=== PATIENT | female | born 1980 | race Caucasian/White ===

== ENCOUNTER 2017-08-14 10:53 | Inpatient (IN) | payer OTHER ==
[2017-08-14 11:02] VITALS: BMI 21.0
--- NOTE | 2017-08-14 14:32 | HP ---
COWS - Scale Resting Pulse: 0= [place] 80 or Below Sweatin= Chills/Flushing Restless Observation: 3= Extraneous Movement Pupil Size: 2= Moderately Dilated Bone or Joint Aches: 4=Acute Joint/Muscle Pain Runny Nose/ Eye Tearin= None GI Upset > 30mins: 2= Nausea/Diarrhea (DIARRHEA) Tremor Observation: 2= Slight Tremor Visible Yawning Observation: 0= None Anxiety or Irritability: 2=Irritable/Anxious Goose Flesh Skin: 3=Piloerection COWS Score: 19 CIWA Score - CIWA Score Nausea/Vomitin (DIARRHEA) Muscle Tremors: 3 Anxiety: 4-Mod. Anxious/Guarded Agitation: 4-Moderately Restless Paroxysmal Sweats: 1-Minimal Palms Moist Orientation: 0-Oriented Tacttile Disturbances: 0-None Auditory Disturbances: 0-None Visual Disturbances: 0-None Headache: 2-Mild CIWA-Ar Total Score: 17 Admission ROS [facility] - HPI Chief Complaint: HEROIN, ALCOHOL AND XANAX WITHDRAWAL SX Allergies/Adverse Reactions: Allergies Allergy/AdvReac Type Severity Reaction Status Date / Time cabbage Allergy Severe Hives Verified 08/14/17 11:46 penicillin G Allergy Unknown unknown Verified 08/14/17 11:46 peanut butter Allergy Severe Rash Uncoded 08/14/17 11:46 History of Present Illness: 37 Y/O FEMALE WITH A HX OF HEROIN, ALCOHOL AND XANAX DEPENDENCE SEEKING DETOX TX. THIS IS PT'S FIRST TIME IN DETOX. PT STATES SHE WAS ON SUBOXONE BUT STOPPED MORE THAN A WEEK AGO AND HAS BEEN USING HEROIN ON THE STREET SINCE THEN. Exam Limitations: No Limitations - Ebola screening Have you traveled outside of the country in the last 21 days: No Have you had contact with anyone from an Ebola affected area: No Have you been sick,other than usual withdrawal symptoms: No Do you have a fever: No - Review of Systems Constitutional: Chills, Night Sweats, Changes in sleep, Unintentional Wgt. Loss EENT: reports: Tearing, Dental Problems (MISSING TEETH) Respiratory: reports: No Symptoms reported Cardiac: reports: Lightheadedness GI: reports: Constipated, Diarrhea, Nausea, Poor Fluid Intake : reports: Frequency Musculoskeletal: reports: Joint Pain, Muscle Pain Integumentary: reports: No Symptoms Reported Neuro: reports: Headache, Seizure (LAST EPISODE 6 YRS AGO) Endocrine: reports: No Symptoms Reported Hematology: reports: No Symptoms Reported Psychiatric: reports: Orientated x3, Anxious Other Systems: Reviewed and Negative Patient History - Patient Medical History Hx Anemia: No Hx Asthma: No Hx Chronic Obstructive Pulmonary Disease (COPD): No Hx Cardiac Disorders: No Hx Hypertension: No Hx Hypercholesterolemia: No HX Cerebrovascular Accident: No Hx Seizures: Yes (drug related-last episode was in 2010) Hx Diabetes: No Hx Gastrointestinal Disorders: No Hx Genitourinary Disorders: No Hx Sexually Transmitted Disorders: No Hx Renal Disease (ESRD): No Hx Thyroid Disease: No Hx Human Immunodeficiency Virus (HIV): No (NEGATIVE HX) Hx Hepatitis C: No Hx Depression: No Hx Suicide Attempt: No (DENIES S/H/I) Hx Bipolar Disorder: No Hx Schizophrenia: No Other Medical History: HX INSOMNIA-REQUESTS F/U - Patient Surgical History Past Surgical History: Yes Hx Neurologic Surgery: No Hx Cataract Extraction: No Hx Cardiac Surgery: No Hx Lung Surgery: No Hx Breast Surgery: No Hx Breast Biopsy: No Hx Abdominal Surgery: No Hx Appendectomy: No Hx Cholecystectomy: No Hx Genitourinary Surgery: No Hx Section: No Hx Orthopedic Surgery: Yes (fx, left wrist) Hx Hysterectomy: No Anesthesia Reaction: No - PPD History Previous Implant?: Yes Documented Results: Negative w/o proof Implanted On Prior R Admission?: No PPD to be Administered?: Yes - Reproductive History Patient is a Female of Child Bearing Age (11 -55 yrs old): Yes Last Menstrual Period: 06/10/17 Patient : No - Smoking Cessation Smoking history: Never smoked Hx Chewing Tobacco Use: No Initiated information on smoking cessation: No - Substance & Tx. History Hx Alcohol Use: Yes (WINE/WHISKY) Hx Substance Use: Yes (HEROIN/XANAX/COCAINE) Substance Use Type: Alcohol, Cocaine, Heroin, Tranquilizers Hx Substance Use Treatment: No - Substances Abused Heroin Route: Inhalation Frequency: Daily Amount used: 10 bags Age of first use: 32 Date of Last Use: 08/12/17 Cocaine Route: Smoking Frequency: 1-3 times last 30 days Amount used: $20 Age of first use: 32 Date of Last Use: 08/12/17 Xanax Route: Oral Frequency: 3-6 times per week Amount used: 6-8 mg. Age of first use: 32 Date of Last Use: 08/12/17 Alcohol-wine/whisky Route: Oral Frequency: Daily Amount used: 1 pt. Age of first use: 32 Date of Last Use: 08/12/17 Family Disease History - Family Disease History Family Disease History: Other: Grandparent (MATERNAL SIDE-HTN ), Father (HTN), Mother (HTN) Admission Physical Exam [facility] - Vital Signs Vital Signs: Vital Signs - 24 hr 08/14/17 10:58 Temperature 98.9 F Pulse Rate 71 Respiratory 18 Rate Blood Pressure 138/94 - Physical General Appearance: Yes: Moderate Distress, Irritable, Anxious HEENTM: Yes: EOMI, Normocephalic, VANESA, Pharynx Normal Respiratory: Yes: Chest Non-Tender, Lungs Clear, Normal Breath Sounds, No Respiratory Distress Neck: Yes: No masses,lesions,Nodules, Supple, Trachea in good position Breast: Yes: Breast Exam Deferred Cardiology: Yes: Regular Rhythm, Regular Rate, S1, S2 Abdominal: Yes: Normal Bowel Sounds, Non Tender, Flat, Soft Genitourinary: Yes: Other (N/C) Back: Yes: Within Normal Limits Musculoskeletal: Yes: full range of Motion, Gait Steady Extremities: Yes: Normal Range of Motion, Non-Tender Neurological: Yes: child specialist II-XII NML intact, Fully Oriented, Alert, Motor Strength 5/5 Integumentary: Yes: Normal Color, Dry, Warm Lymphatic: Yes: Within Normal Limits - Diagnostic (1) Opioid dependence with withdrawal Current Visit: Yes Status: Acute (2) Alcohol dependence with uncomplicated withdrawal Current Visit: Yes Status: Acute (3) Sedative, hypnotic or anxiolytic dependence with withdrawal, uncomplicated Current Visit: Yes Status: Acute (4) History of insomnia Current Visit: Yes Status: Chronic (5) Cocaine dependence, uncomplicated Current Visit: Yes Status: Acute (6) Drug withdrawal seizure Current Visit: Yes Status: Suspected Qualifiers: Complication of substance-induced condition: uncomplicated Qualified Code(s ): F19.230 - Other psychoactive substance dependence with withdrawal, uncomplicated Cleared for Admission [facility] - Detox or Rehab [facility] Level of Care: Medically Managed Detox Regimen/Protocol: Methadone/Librium [facility] Breath Alcohol Content Breath Alcohol Content: 0 Urine Pregancy Test - Result Urine Test Results: Negative- NO Line Present Urine Drug Screen - Results Drug Screen Negative: No Urine Drug Screen Results: DEJAH-Cocaine, OPI-Opiates, BZO-Benzodiazepines
[2017-08-14] MEDS ORDERED: MAG HYDROX/AL HYDROX/SIMETH 30 ML UNIT-DOSE CUP PO PRN (14:54)
[2017-08-14] MEDS ORDERED: ACETAMINOPHEN 325 MG TABLET (FP) PO PRN (14:54)
[2017-08-14] MEDS ORDERED: MAGNESIUM CITRATE 300 ML BOTTLE PO PRN (14:54)
[2017-08-14] MEDS ORDERED: LOPERAMIDE HCL 2 MG CAPSULE PO PRN (14:54)
[2017-08-14] MEDS ORDERED: P-EPHED 60MG/TRIPROLIDI 2.5MG TABLET PO PRN (14:54)
[2017-08-14] MEDS ORDERED: MAGNESIUM HYDROX 2400MG/30ML ORAL SUSPENSION 30 ML CUP PO PRN (14:54)
[2017-08-14] MEDS ORDERED: guaiFENesin/D-METHORPHAN HB 10 ML UNIT-DOSE CUPS PO PRN (14:54)
[2017-08-14] MEDS ORDERED: IBUPROFEN 400 MG TABLET (FP) PO PRN (14:54)
[2017-08-14] MEDS ORDERED: MENTHOL/PHENOL 1 EACH UD MM PRN (14:54)
[2017-08-14] MEDS ORDERED: METHADONE HCL 10 MG TABLET (FOR DETOX USE ONLY) PO ONE ×2 (15:30→23:00)
[2017-08-14] MEDS ORDERED: chlordiazePOXIDE HCL 25 MG CAPSULE PO ONE (15:30)
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
[2017-08-14] MEDS: chlordiazePOXIDE HCL 25 MG CAPSULE PO PRN (18:05)
[2017-08-14] MEDS: chlordiazePOXIDE HCL 25 MG CAPSULE PO SCH ×2 (18:06→22:24)
[2017-08-14] MEDS: hydrOXYzine PAMOATE 25 MG CAPSULE (FP) PO PRN (19:24)
[2017-08-14] MEDS ORDERED: MELATONIN 5 MG TABLETS PO PRN (22:00)
[2017-08-14] MEDS: THIAMINE HCL 100 MG TABLET (FP) PO SCH (22:24)
[2017-08-14] MEDS: ZOLPIDEM TARTRATE 5 MG TABLET PO PRN (22:28)
[2017-08-14 22:40] LABS: URINE APPEARANCE TURBID; URINE BILIRUBIN NEGATIVE (<2.0 mg/dL); URINE COLOR YELLOW; URINE GLUCOSE (UA) NEGATIVE (NEGATIVE); URINE KETONE NEGATIVE (NEGATIVE); URINE NITRITE NEGATIVE (NEGATIVE); URINE UROBILINOGEN 4.0 E.U/dl mg/dL (0.2-1.0)
[2017-08-14 22:45] LABS: URINE LEUK ESTERASE 1+ (NEGATIVE); URINE PROTEIN 1+ (NEGATIVE)
[2017-08-14 22:50] LABS: EPI CELLS RARE /HPF (FEW); URINE MUCUS MANY
[2017-08-15] MEDS: chlordiazePOXIDE HCL 25 MG CAPSULE PO SCH ×4 (05:12→22:32)
[2017-08-15] MEDS: hydrOXYzine PAMOATE 25 MG CAPSULE (FP) PO PRN ×3 (05:16→19:48)
--- NOTE | 2017-08-15 09:24 | EKG ---
Test Reason : Blood Pressure : / mmHG Vent. Rate : 056 BPM Atrial Rate : 056 BPM P-R Int : 122 ms QRS Dur : 090 ms QT Int : 462 ms P-R-T Axes : 025 030 -18 degrees QTc Int : 445 ms SINUS BRADYCARDIA NONSPECIFIC T WAVE ABNORMALITY ABNORMAL ECG NO PREVIOUS ECGS AVAILABLE Confirmed by SHARYN MCKEON MD ([id number]) on 08/15/2017 9:23:34 AM Referred By: Confirmed By:SHARYN MCKEON MD
[2017-08-15 09:48] LABS: HEMOGLOBIN 12.7 GM/dL (10.7-15.3); MCH 30.2 pg (25.7-33.7); MCHC 34.3 g/dl (32.0-36.0); MEAN CELL VOLUME 88.2 fl (80-96); MEAN PLT VOLUME 12.1 fl (7.5-11.1); PLATELET COUNT 121 K/MM3 (134-434); RDW 12.8 % (11.6-15.6); WHITE BLOOD COUNT 5.7 K/mm3 (4.0-10.0)
[2017-08-15] MEDS ORDERED: METHADONE HCL 10 MG TABLET (FOR DETOX USE ONLY) PO SCH (10:00)
[2017-08-15] MEDS: PRENATAL VITAMINS W/ FOLIC ACID TABLET (FP) PO SCH (10:28)
[2017-08-15 10:40] LABS: CHLORIDE 107 mmol/L (98-107); POTASSIUM 3.4 mmol/L (3.5-5.1); SODIUM 144 mmol/L (136-145)
[2017-08-15 10:52] LABS: ALBUMIN 3.2 g/dl (3.4-5.0); ALK PHOS 64 U/L (45-117); ANION GAP 6 (8-16); BILIRUBIN,TOTAL 0.4 mg/dL (0.2-1.0); BLOOD UREA NITROGEN 12 mg/dL (7-18); CALCIUM 8.6 mg/dL (8.5-10.1); CO2 31 mmol/L (21-32); CREATININE 0.7 mg/dL (0.55-1.02); GLUCOSE,RANDOM 82 mg/dL (74-106); SGOT/AST 10 U/L (15-37); SGPT/ALT 16 U/L (12-78); TOT PROT 6.4 g/dl (6.4-8.2)
[2017-08-15] MEDS ORDERED: ONDANSETRON 4 MG/2 ML VIAL IM PRN (12:22)
[2017-08-15] MEDS ORDERED: ONDANSETRON *ODT* 4 MG TABLET SL PRN (13:49)
[2017-08-15] MEDS: chlordiazePOXIDE HCL 25 MG CAPSULE PO PRN (13:52)
--- NOTE | 2017-08-15 14:00 | PN ---
[facility] CIWA - CIWA Score Nausea/Vomitin Muscle Tremors: 3 Anxiety: 3 Agitation: 3 Paroxysmal Sweats: 3 Orientation: 0-Oriented Tacttile Disturbances: 0-None Auditory Disturbances: 0-None Visual Disturbances: 0-None Headache: 0-None Present CIWA-Ar Total Score: 15 S COWS - Scale Resting Pulse: 1= [place] 81-100 Sweatin=Flushed/Facial Moisture Restless Observation: 3= Extraneous Movement Pupil Size: 0= Normal to Room Light Bone or Joint Aches: 1= Mild Discomfort Runny Nose/ Eye Tearin= Nasal Congestion GI Upset > 30mins: 2= Nausea/Diarrhea Tremor Observation of Outstretched Hands: 2= Slight Tremor Visible Yawning Observation: 0= None Anxiety or Irritability: 4=Extreme Anxiety Goose Flesh Skin: 0=Smooth Skin COWS Score: 16 [facility] Progress Note (SOAP) Subjective: Sweats Anxious nausea Objective: 08/15/17 14:00 A & O x 3 Anxious Vital Signs Temperature 97.5 F L 08/15/17 10:09 Pulse Rate 63 08/15/17 10:09 Respiratory Rate 18 08/15/17 10:09 Blood Pressure 105/74 08/15/17 10:09 O2 Sat by Pulse Oximetry (%) Laboratory Last Values WBC 5.7 K/mm3 (4.0-10.0) 08/15/17 08:00 RBC 4.20 M/mm3 (3.60-5.2) 08/15/17 08:00 Hgb 12.7 GM/dL (10.7-15.3) 08/15/17 08:00 Hct 37.0 % (32.4-45.2) 08/15/17 08:00 MCV 88.2 fl (80-96) 08/15/17 08:00 MCH 30.2 pg (25.7-33.7) 08/15/17 08:00 MCHC 34.3 g/dl (32.0-36.0) 08/15/17 08:00 RDW 12.8 % (11.6-15.6) 08/15/17 08:00 Plt Count 121 K/MM3 (134-434) L 08/15/17 08:00 MPV 12.1 fl (7.5-11.1) H 08/15/17 08:00 Sodium 144 mmol/L (136-145) 08/15/17 08:00 Potassium 3.4 mmol/L (3.5-5.1) L 08/15/17 08:00 Chloride 107 mmol/L (98-107) 08/15/17 08:00 Carbon Dioxide 31 mmol/L (21-32) 08/15/17 08:00 Anion Gap 6 (8-16) L 08/15/17 08:00 BUN 12 mg/dL (7-18) 08/15/17 08:00 Creatinine 0.7 mg/dL (0.55-1.02) 08/15/17 08:00 Creat Clearance w eGFR > 60 (>60) 08/15/17 08:00 Random Glucose 82 mg/dL (74-106) 08/15/17 08:00 Calcium 8.6 mg/dL (8.5-10.1) 08/15/17 08:00 Total Bilirubin 0.4 mg/dL (0.2-1.0) 08/15/17 08:00 AST 10 U/L (15-37) L 08/15/17 08:00 ALT 16 U/L (12-78) 08/15/17 08:00 Alkaline Phosphatase 64 U/L (45-117) 08/15/17 08:00 Total Protein 6.4 g/dl (6.4-8.2) 08/15/17 08:00 Albumin 3.2 g/dl (3.4-5.0) L 08/15/17 08:00 Urine Color Yellow 08/14/17:34 Urine Appearance Turbid 08/14/17 15:34 Urine pH 5.0 (5.0-8.0) 08/14/17 15:34 Ur Specific [place] 1.033 (1.001-1.035) 08/14/17 15:34 Urine Protein 1+ (NEGATIVE) H 08/14/17 15:34 Urine Glucose (UA) Negative (NEGATIVE) 08/14/17 15:34 Urine Ketones Negative (NEGATIVE) 08/14/17 15:34 Urine Blood Negative (NEGATIVE) 08/14/17 15:34 Urine Nitrite Negative (NEGATIVE) 08/14/17:34 Urine Bilirubin Negative (<2.0 mg/dL) 08/14/17 15:34 Urine Urobilinogen 4.0 e.u/dl mg/dL (0.2-1.0) H 08/14/17 15:34 Ur Leukocyte Esterase 1+ (NEGATIVE) H 08/14/17 15:34 Urine WBC (Auto) 22 /hpf (3-5) 08/14/17 15:34 Urine RBC (Auto) 2 /hpf (0-3) 08/14/17 15:34 Ur Epithelial Cells Rare /HPF (FEW) 08/14/17 15:34 Urine Mucus Many 08/14/17 15:34 labs noted, abnormal urinalysis - denies UTI sx 08/15/17 14:02 Assessment: 08/15/17 14:01 withdrawal sx Abnormal Urinalysis Plan: continue detox Increase hydration Repeat UA in a.m
[2017-08-15 19:30] LABS: URINE APPEARANCE SLCLOUDY; URINE BILIRUBIN NEGATIVE (<2.0 mg/dL); URINE COLOR YELLOW; URINE GLUCOSE (UA) NEGATIVE (NEGATIVE); URINE KETONE NEGATIVE (NEGATIVE); URINE LEUK ESTERASE TRACE (NEGATIVE); URINE NITRITE NEGATIVE (NEGATIVE); URINE PROTEIN NEGATIVE (NEGATIVE)
[2017-08-15 19:38] LABS: EPI CELLS MODERATE /HPF (FEW); URINE BACTERIA FEW /hpf (NONE SEEN); URINE MUCUS RARE
[2017-08-15] MEDS: THIAMINE HCL 100 MG TABLET (FP) PO SCH (22:32)
[2017-08-15] MEDS: ZOLPIDEM TARTRATE 5 MG TABLET PO PRN (22:33)
[2017-08-16] MEDS: chlordiazePOXIDE HCL 25 MG CAPSULE PO SCH ×2 (05:19→10:37)
[2017-08-16] MEDS: hydrOXYzine PAMOATE 25 MG CAPSULE (FP) PO PRN ×3 (05:20→22:12)
[2017-08-16] MEDS: METHADONE HCL 5 MG TABLET (FOR DETOX USE ONLY) PO SCH (10:37)
[2017-08-16] MEDS: PRENATAL VITAMINS W/ FOLIC ACID TABLET (FP) PO SCH (10:37)
--- NOTE | 2017-08-16 11:27 | PN ---
[facility] CIWA - CIWA Score Nausea/Vomitin-Mild Nausea/No Vomiting Muscle Tremors: 4-Moderate,w/Arms Extend Anxiety: 3 Agitation: 3 Paroxysmal Sweats: 1-Minimal Palms Moist Orientation: 1-Uncertain about Date Tacttile Disturbances: 1-Very Mild Itch/Numbness Auditory Disturbances: 0-None Visual Disturbances: 0-None Headache: 0-None Present CIWA-Ar Total Score: 14 S COWS - Scale Resting Pulse: 0= [place] 80 or Below Sweatin= Chills/Flushing Restless Observation: 3= Extraneous Movement Pupil Size: 0= Normal to Room Light Bone or Joint Aches: 2= Severe Diffuse Aches Runny Nose/ Eye Tearin= Nasal Congestion GI Upset > 30mins: 2= Nausea/Diarrhea Tremor Observation of Outstretched Hands: 1= Tremor [place], Not Seen Yawning Observation: 2= >3x During Session Anxiety or Irritability: 2=Irritable/Anxious Goose Flesh Skin: 0=Smooth Skin COWS Score: 14 [facility] Progress Note (SOAP) Subjective: JOINT PAIN BODY ACHE SWEAT TREMOR TROUBLE SLEEP AT NIGHT Objective: 08/16/17 11:20 Vital Signs Temperature 97.2 F L 08/16/17 09:36 Pulse Rate 75 08/16/17 09:36 Respiratory Rate 18 08/16/17 09:36 Blood Pressure 111/69 08/16/17 09:36 O2 Sat by Pulse Oximetry (%) Laboratory Last Values WBC 5.7 K/mm3 (4.0-10.0) 08/15/17 08:00 RBC 4.20 M/mm3 (3.60-5.2) 08/15/17 08:00 Hgb 12.7 GM/dL (10.7-15.3) 08/15/17 08:00 Hct 37.0 % (32.4-45.2) 08/15/17 08:00 MCV 88.2 fl (80-96) 08/15/17 08:00 MCH 30.2 pg (25.7-33.7) 08/15/17 08:00 MCHC 34.3 g/dl (32.0-36.0) 08/15/17 08:00 RDW 12.8 % (11.6-15.6) 08/15/17 08:00 Plt Count 121 K/MM3 (134-434) L 08/15/17 08:00 MPV 12.1 fl (7.5-11.1) H 08/15/17 08:00 Sodium 144 mmol/L (136-145) 08/15/17 08:00 Potassium 3.4 mmol/L (3.5-5.1) L 08/15/17 08:00 Chloride 107 mmol/L (98-107) 08/15/17 08:00 Carbon Dioxide 31 mmol/L (21-32) 08/15/17 08:00 Anion Gap 6 (8-16) L 08/15/17 08:00 BUN 12 mg/dL (7-18) 08/15/17 08:00 Creatinine 0.7 mg/dL (0.55-1.02) 08/15/17 08:00 Creat Clearance w eGFR > 60 (>60) 08/15/17 08:00 Random Glucose 82 mg/dL (74-106) 08/15/17 08:00 Calcium 8.6 mg/dL (8.5-10.1) 08/15/17 08:00 Total Bilirubin 0.4 mg/dL (0.2-1.0) 08/15/17 08:00 AST 10 U/L (15-37) L 08/15/17 08:00 ALT 16 U/L (12-78) 08/15/17 08:00 Alkaline Phosphatase 64 U/L (45-117) 08/15/17 08:00 Total Protein 6.4 g/dl (6.4-8.2) 08/15/17 08:00 Albumin 3.2 g/dl (3.4-5.0) L 08/15/17 08:00 Urine Color Yellow 08/15/17 15:49 Urine Appearance Slcloudy 08/15/17 15:49 Urine pH 6.0 (5.0-8.0) 08/15/17 15:49 Ur Specific [place] 1.015 (1.001-1.035) 08/15/17 15:49 Urine Protein Negative (NEGATIVE) 08/15/17 15:49 Urine Glucose (UA) Negative (NEGATIVE) 08/15/17 15:49 Urine Ketones Negative (NEGATIVE) 08/15/17 15:49 Urine Blood Negative (NEGATIVE) 08/15/17 15:49 Urine Nitrite Negative (NEGATIVE) 08/15/17 15:49 Urine Bilirubin Negative (<2.0 mg/dL) 08/15/17 15:49 Urine Urobilinogen 2.0 mg/dL (0.2-1.0) H 08/15/17 15:49 Ur Leukocyte Esterase Trace (NEGATIVE) 08/15/17 15:49 Urine WBC (Auto) 13 /hpf (3-5) 08/15/17 15:49 Urine RBC (Auto) 3 /hpf (0-3) 08/15/17 15:49 Ur Epithelial Cells Moderate /HPF (FEW) 08/15/17 15:49 Urine Bacteria Few /hpf (NONE SEEN) 08/15/17 15:49 Urine Mucus Rare 08/15/17 15:49 RPR Titer Nonreactive (NONREACTIVE) 08/15/17 08:00 LAB NOTED LOW k+ 08/16/17 11:27 REPEAT UA Assessment: 08/16/17 11:23 WITHDRAWAL SX LOW k+ Plan: CONTINUE DETOX k+ SUPPLEMENT
[2017-08-16] MEDS ORDERED: POTASSIUM CHLORIDE TABS 10 MEQ TABLET.ER (FP) PO SCH (11:30)
[2017-08-16] MEDS ORDERED: POTASSIUM CHLORIDE TABS 20 MEQ TABLET.ER (FP) PO SCH (12:09)
[2017-08-16] MEDS: POTASSIUM CHLORIDE TABS 20 MEQ TABLET.ER (FP) PO SCH (12:28)
[2017-08-16] MEDS: chlordiazePOXIDE HCL 25 MG CAPSULE PO PRN (14:22)
[2017-08-16] MEDS: chlordiazePOXIDE 5 MG CAPSULE PO SCH ×2 (17:20→22:11)
[2017-08-16] MEDS: THIAMINE HCL 100 MG TABLET (FP) PO SCH (22:11)
[2017-08-16] MEDS: ZOLPIDEM TARTRATE 5 MG TABLET PO PRN (22:12)
[2017-08-17] MEDS: chlordiazePOXIDE 5 MG CAPSULE PO SCH ×2 (05:15→10:44)
[2017-08-17] MEDS: hydrOXYzine PAMOATE 25 MG CAPSULE (FP) PO PRN ×3 (07:29→18:12)
--- NOTE | 2017-08-17 08:16 | PN ---
Psychiatric Progress Note Vital Signs: Vital Signs Period Temp Pulse Resp BP Sys/Pressley Pulse Ox Last 24 Hr 97.2 F-98.2 F 67-75 18-18 111-159/56-88 Date of Session: 08/17/17 Chief Complaint:: Anxiety, agitation, insomnia HPI: Patient reports anxiety and insomnia, asking for medications help. Current Medications: Active Medications Generic Name Dose Route Start Last Admin Trade Name Freq PRN Reason Stop Dose Admin Acetaminophen 650 mg 08/14/17 14:54 Tylenol - PO Q4H PRN FEVER Al Hydroxide/Mg Hydroxide 30 ml 08/14/17 14:54 Mylanta Oral Suspension - PO Q6H PRN DYSPEPSIA Chlordiazepoxide HCl 15 mg 08/16/17 17:00 08/17/17 05:15 Librium - PO 08/17/17 11:01 15 mg [id number] DEANGELO Administration Chlordiazepoxide HCl 10 mg 08/17/17 17:00 Librium - PO 08/18/17 11:01 [id number] DEANGELO Chlordiazepoxide HCl 25 mg 08/14/17 14:54 08/16/17 14:22 Librium - PO 08/17/17 14:54 25 mg Q4H PRN Administration WITHDRAWAL(CONT SUBST) Eucalyptus/Menthol/Phenol/Sorbitol 1 each 08/14/17 14:54 Cepastat Lozenge - MM Q4H PRN SORE THROAT Guaifenesin 10 ml 08/14/17 14:54 Robitussin Dm - PO Q6H PRN COUGH Hydroxyzine Pamoate 50 mg 08/17/17 07:47 Vistaril - PO Q4H PRN ANXIETY Ibuprofen 400 mg 08/14/17 14:54 Motrin - PO Q6H PRN PAIN LEVEL 4-6 Loperamide HCl 4 mg 08/14/17 14:54 Imodium - PO Q6H PRN DIARRHEA Magnesium Citrate 300 ml 08/14/17 14:54 Citroma - PO Q48H PRN CONSTIPATION Magnesium Hydroxide 30 ml 08/14/17 14:54 Milk Of Magnesia - PO DAILY PRN CONSTIPATION Methadone HCl 15 mg 08/16/17 10:00 08/16/17 10:37 Dolophine - PO 08/17/17 10:01 15 mg DAILY DEANGELO Administration Methadone HCl 5 mg 08/19/17 06:00 Dolophine - PO 08/19/17 06:01 DAILY@0600 DEANGELO Methadone HCl 10 mg 08/18/17 10:00 Dolophine - PO 08/18/17 10:01 DAILY DEANGELO Ondansetron HCl 4 mg 08/15/17 13:49 Zofran Odt - SL Q6H PRN NAUSEA AND/OR VOMITING Potassium Chloride 20 meq 08/16/17 12:30 08/16/17 12:28 K-Dur - PO 20 meq DAILY DEANGELO Administration Multivit/Folic Acid/Iron 1 tab 08/15/17 10:00 08/16/17 10:37 Vitamins (Sjr) - PO 1 tab DAILY DEANGELO Administration Pseudoephedrine/Triprolidine 1 combo 08/14/17 14:54 Actifed - PO TID PRN NASAL CONGESTION Quetiapine Fumarate 50 mg 08/17/17 14:00 Seroquel - PO TID DEANGELO Thiamine HCl 100 mg 08/14/17 22:00 08/16/17 22:11 Vitamin B1 - PO 100 mg HS DEANGELO Administration Zolpidem Tartrate 10 mg 08/16/17 13:46 08/16/17 22:12 Ambien - PO 08/21/17 23:59 10 mg HS PRN Administration INSOMNIA Medication(s) Change(s): [id number] po prn q4. Seroquel 50mg po tid Mental Status Exam - Mental Status Exam Alert and Oriented to: Place, Person Cognitive Function: Fair Patient Appearance: Unkempt Mood: Anxious Affect: Mood Congruent Patient Behavior: Talkative Speech Pattern: Appropriate Voice Loudness: Normal Thought Process: Goal Oriented Thought Disorder: Being Controlled Hallucinations: Denies Suicidal Ideation: Denies Homicidal Ideation: Denies Insight/Judgement: Fair Sleep: Difficulty falling asleep Appetite: Weight loss Muscle strength/Tone: Mild Hypotonicity Gait/Station: Normal Additional Comments: Trazodone 100mg po qhs. Flexeril 10mg pop tid. Vistaril 100mg p[o tid Psychiatric Treatment Plan - Problem List (1) Drug-induced mood disorder Current Visit: Yes (2) Alcohol dependence with uncomplicated withdrawal Current Visit: Yes (3) Cocaine dependence, uncomplicated Current Visit: Yes (4) Opioid dependence with withdrawal Current Visit: Yes (5) Sedative, hypnotic or anxiolytic dependence with withdrawal, uncomplicated Current Visit: Yes (6) Substance-induced sleep disorder Current Visit: Yes (7) History of insomnia Current Visit: Yes Initial treatment plan: Trazodone 100mg po qhs. Flexeril 10mg pop tid. Vistaril 100mg p[o tid
[2017-08-17] MEDS: PRENATAL VITAMINS W/ FOLIC ACID TABLET (FP) PO SCH (10:43)
[2017-08-17] MEDS: POTASSIUM CHLORIDE TABS 20 MEQ TABLET.ER (FP) PO SCH (10:43)
[2017-08-17] MEDS: METHADONE HCL 5 MG TABLET (FOR DETOX USE ONLY) PO SCH (10:44)
[2017-08-17] MEDS: chlordiazePOXIDE HCL 25 MG CAPSULE PO PRN (11:52)
[2017-08-17] MEDS: QUEtiapine FUMARATE 50 MG TABLET PO SCH ×2 (14:00→22:06)
--- NOTE | 2017-08-17 14:21 | PN ---
[facility] Progress Note (SOAP) Subjective: joint pain sweat tremor body ache anxiety restlessness irritable Objective: 08/17/17 14:21 Vital Signs Temperature 98.2 F 08/17/17 13:50 Pulse Rate 74 08/17/17 13:50 Respiratory Rate 18 08/17/17 13:50 Blood Pressure 143/85 08/17/17 13:50 O2 Sat by Pulse Oximetry (%) Laboratory Last Values WBC 5.7 K/mm3 (4.0-10.0) 08/15/17 08:00 RBC 4.20 M/mm3 (3.60-5.2) 08/15/17 08:00 Hgb 12.7 GM/dL (10.7-15.3) 08/15/17 08:00 Hct 37.0 % (32.4-45.2) 08/15/17 08:00 MCV 88.2 fl (80-96) 08/15/17 08:00 MCH 30.2 pg (25.7-33.7) 08/15/17 08:00 MCHC 34.3 g/dl (32.0-36.0) 08/15/17 08:00 RDW 12.8 % (11.6-15.6) 08/15/17 08:00 Plt Count 121 K/MM3 (134-434) L 08/15/17 08:00 MPV 12.1 fl (7.5-11.1) H 08/15/17 08:00 Sodium 144 mmol/L (136-145) 08/15/17 08:00 Potassium 3.4 mmol/L (3.5-5.1) L 08/15/17 08:00 Chloride 107 mmol/L (98-107) 08/15/17 08:00 Carbon Dioxide 31 mmol/L (21-32) 08/15/17 08:00 Anion Gap 6 (8-16) L 08/15/17 08:00 BUN 12 mg/dL (7-18) 08/15/17 08:00 Creatinine 0.7 mg/dL (0.55-1.02) 08/15/17 08:00 Creat Clearance w eGFR > 60 (>60) 08/15/17 08:00 Random Glucose 82 mg/dL (74-106) 08/15/17 08:00 Calcium 8.6 mg/dL (8.5-10.1) 08/15/17 08:00 Total Bilirubin 0.4 mg/dL (0.2-1.0) 08/15/17 08:00 AST 10 U/L (15-37) L 08/15/17 08:00 ALT 16 U/L (12-78) 08/15/17 08:00 Alkaline Phosphatase 64 U/L (45-117) 08/15/17 08:00 Total Protein 6.4 g/dl (6.4-8.2) 08/15/17 08:00 Albumin 3.2 g/dl (3.4-5.0) L 08/15/17 08:00 Urine Color Yellow 08/15/17 15:49 Urine Appearance Slcloudy 08/15/17 15:49 Urine pH 6.0 (5.0-8.0) 08/15/17 15:49 Ur Specific [place] 1.015 (1.001-1.035) 08/15/17 15:49 Urine Protein Negative (NEGATIVE) 08/15/17 15:49 Urine Glucose (UA) Negative (NEGATIVE) 08/15/17 15:49 Urine Ketones Negative (NEGATIVE) 08/15/17 15:49 Urine Blood Negative (NEGATIVE) 08/15/17 15:49 Urine Nitrite Negative (NEGATIVE) 08/15/17 15:49 Urine Bilirubin Negative (<2.0 mg/dL) 08/15/17 15:49 Urine Urobilinogen 2.0 mg/dL (0.2-1.0) H 08/15/17 15:49 Ur Leukocyte Esterase Trace (NEGATIVE) 08/15/17 15:49 Urine WBC (Auto) 13 /hpf (3-5) 08/15/17 15:49 Urine RBC (Auto) 3 /hpf (0-3) 08/15/17 15:49 Ur Epithelial Cells Moderate /HPF (FEW) 08/15/17 15:49 Urine Bacteria Few /hpf (NONE SEEN) 08/15/17 15:49 Urine Mucus Rare 08/15/17 15:49 RPR Titer Nonreactive (NONREACTIVE) 08/15/17 08:00 lab noted Assessment: 08/17/17 14:26 withdrawal sx Plan: continue detox
[2017-08-17] MEDS: chlordiazePOXIDE HCL 10 MG CAPSULE PO SCH ×2 (18:12→22:06)
[2017-08-17] MEDS: ZOLPIDEM TARTRATE 5 MG TABLET PO PRN (22:06)
[2017-08-17] MEDS: THIAMINE HCL 100 MG TABLET (FP) PO SCH (22:06)
[2017-08-18] MEDS: QUEtiapine FUMARATE 50 MG TABLET PO SCH ×3 (06:21→22:05)
[2017-08-18] MEDS: chlordiazePOXIDE HCL 10 MG CAPSULE PO SCH ×2 (06:21→10:04)
[2017-08-18] MEDS ORDERED: METHADONE HCL 10 MG TABLET (FOR DETOX USE ONLY) PO SCH (10:00)
[2017-08-18] MEDS: POTASSIUM CHLORIDE TABS 20 MEQ TABLET.ER (FP) PO SCH (10:04)
[2017-08-18] MEDS: PRENATAL VITAMINS W/ FOLIC ACID TABLET (FP) PO SCH (10:04)
--- NOTE | 2017-08-18 10:25 | PN ---
[facility] Progress Note (SOAP) Subjective: feeling better social with peers in day room no tremor less sweat no body aches Objective: 08/18/17 10:24 Vital Signs Temperature 97.5 F L 08/18/17 09:06 Pulse Rate 80 08/18/17 09:06 Respiratory Rate 18 08/18/17 09:06 Blood Pressure 141/86 08/18/17 09:06 O2 Sat by Pulse Oximetry (%) Laboratory Last Values WBC 5.7 K/mm3 (4.0-10.0) 08/15/17 08:00 RBC 4.20 M/mm3 (3.60-5.2) 08/15/17 08:00 Hgb 12.7 GM/dL (10.7-15.3) 08/15/17 08:00 Hct 37.0 % (32.4-45.2) 08/15/17 08:00 MCV 88.2 fl (80-96) 08/15/17 08:00 MCH 30.2 pg (25.7-33.7) 08/15/17 08:00 MCHC 34.3 g/dl (32.0-36.0) 08/15/17 08:00 RDW 12.8 % (11.6-15.6) 08/15/17 08:00 Plt Count 121 K/MM3 (134-434) L 08/15/17 08:00 MPV 12.1 fl (7.5-11.1) H 08/15/17 08:00 Sodium 144 mmol/L (136-145) 08/15/17 08:00 Potassium 3.9 mmol/L (3.5-5.1) 08/18/17 07:00 Chloride 107 mmol/L (98-107) 08/15/17 08:00 Carbon Dioxide 31 mmol/L (21-32) 08/15/17 08:00 Anion Gap 6 (8-16) L 08/15/17 08:00 BUN 12 mg/dL (7-18) 08/15/17 08:00 Creatinine 0.7 mg/dL (0.55-1.02) 08/15/17 08:00 Creat Clearance w eGFR > 60 (>60) 08/15/17 08:00 Random Glucose 82 mg/dL (74-106) 08/15/17 08:00 Calcium 8.6 mg/dL (8.5-10.1) 08/15/17 08:00 Total Bilirubin 0.4 mg/dL (0.2-1.0) 08/15/17 08:00 AST 10 U/L (15-37) L 08/15/17 08:00 ALT 16 U/L (12-78) 08/15/17 08:00 Alkaline Phosphatase 64 U/L (45-117) 08/15/17 08:00 Total Protein 6.4 g/dl (6.4-8.2) 08/15/17 08:00 Albumin 3.2 g/dl (3.4-5.0) L 08/15/17 08:00 Urine Color Yellow 08/15/17 15:49 Urine Appearance Slcloudy 08/15/17 15:49 Urine pH 6.0 (5.0-8.0) 08/15/17 15:49 Ur Specific [place] 1.015 (1.001-1.035) 08/15/17 15:49 Urine Protein Negative (NEGATIVE) 08/15/17 15:49 Urine Glucose (UA) Negative (NEGATIVE) 08/15/17 15:49 Urine Ketones Negative (NEGATIVE) 08/15/17 15:49 Urine Blood Negative (NEGATIVE) 08/15/17 15:49 Urine Nitrite Negative (NEGATIVE) 08/15/17 15:49 Urine Bilirubin Negative (<2.0 mg/dL) 08/15/17 15:49 Urine Urobilinogen 2.0 mg/dL (0.2-1.0) H 08/15/17 15:49 Ur Leukocyte Esterase Trace (NEGATIVE) 08/15/17 15:49 Urine WBC (Auto) 13 /hpf (3-5) 08/15/17 15:49 Urine RBC (Auto) 3 /hpf (0-3) 08/15/17 15:49 Ur Epithelial Cells Moderate /HPF (FEW) 08/15/17 15:49 Urine Bacteria Few /hpf (NONE SEEN) 08/15/17 15:49 Urine Mucus Rare 08/15/17 15:49 RPR Titer Nonreactive (NONREACTIVE) 08/15/17 08:00 lab noted Assessment: 08/18/17 10:25 mild withdrawal sx Plan: medically supervised detox
[2017-08-18] MEDS: hydrOXYzine PAMOATE 25 MG CAPSULE (FP) PO PRN ×2 (11:32→16:23)
[2017-08-18] MEDS: THIAMINE HCL 100 MG TABLET (FP) PO SCH (22:05)
[2017-08-18] MEDS: ZOLPIDEM TARTRATE 5 MG TABLET PO PRN (22:06)
[2017-08-19] MEDS: QUEtiapine FUMARATE 50 MG TABLET PO SCH (05:09)
[2017-08-19] MEDS ORDERED: METHADONE HCL 5 MG TABLET (FOR DETOX USE ONLY) PO SCH (06:00)
--- NOTE | 2017-08-19 08:57 | PN ---
[facility] Progress Note (SOAP) Subjective: Improved Objective: 08/19/17 08:55 Vital Signs Temperature 97.7 F 08/19/17 06:00 Pulse Rate 76 08/19/17 06:00 Respiratory Rate 16 08/19/17 06:00 Blood Pressure 140/91 08/19/17 06:00 O2 Sat by Pulse Oximetry (%) Laboratory Tests 08/14/17 08/15/17 08/15/17 15:34 08:00 08:00 WBC 5.7 RBC 4.20 Hgb 12.7 Hct 37.0 MCV 88.2 MCH 30.2 MCHC 34.3 RDW 12.8 Plt Count 121 L MPV 12.1 H Sodium 144 Potassium 3.4 L Chloride 107 Carbon Dioxide 31 Anion Gap 6 L BUN 12 Creatinine 0.7 Creat Clearance w eGFR > 60 Random Glucose 82 Calcium 8.6 Total Bilirubin 0.4 AST 10 L ALT 16 Alkaline Phosphatase 64 Total Protein 6.4 Albumin 3.2 L Urine Color Yellow Urine Appearance Turbid Urine pH 5.0 Ur Specific [place] 1.033 Urine Protein 1+ H Urine Glucose (UA) Negative Urine Ketones Negative Urine Blood Negative Urine Nitrite Negative Urine Bilirubin Negative Urine Urobilinogen 4.0 e.u/dl H Ur Leukocyte Esterase 1+ H Urine WBC (Auto) 22 Urine RBC (Auto) 2 Ur Epithelial Cells Rare Urine Bacteria Urine Mucus Many RPR Titer 08/15/17 08/15/17 08/18/17 08:00 15:49 07:00 WBC RBC Hgb Hct MCV MCH MCHC RDW Plt Count MPV Sodium Potassium 3.9 Chloride Carbon Dioxide Anion Gap BUN Creatinine Creat Clearance w eGFR Random Glucose Calcium Total Bilirubin AST ALT Alkaline Phosphatase Total Protein Albumin Urine Color Yellow Urine Appearance Slcloudy Urine pH 6.0 Ur Specific [place] 1.015 Urine Protein Negative Urine Glucose (UA) Negative Urine Ketones Negative Urine Blood Negative Urine Nitrite Negative Urine Bilirubin Negative Urine Urobilinogen 2.0 H Ur Leukocyte Esterase Trace Urine WBC (Auto) 13 Urine RBC (Auto) 3 Ur Epithelial Cells Moderate Urine Bacteria Few Urine Mucus Rare RPR Titer Nonreactive pt aox3 in nad ambulating Assessment: 08/19/17 08:56 withdrawal sx's improved detox completed Plan: d/c today
--- NOTE | 2017-08-19 09:00 | DS ---
[facility] Detox Discharge Summary Admission Date: 08/14/17 Discharge Date: 08/19/17 - History Present History: Alcohol Dependence, Cocaine Dependence, Opioid Dependence - Physical Exam Results Vital Signs: Vital Signs Temperature 97.7 F 08/19/17 06:00 Pulse Rate 76 08/19/17 06:00 Respiratory Rate 16 08/19/17 06:00 Blood Pressure 140/91 08/19/17 06:00 O2 Sat by Pulse Oximetry (%) - Treatment Hospital Course: Detox Protocol Followed, Detoxed Safely, Responded well, Discharged Condition Good - Medication Discharge Medications: Ambulatory Orders Buprenorphine HCl/Naloxone HCl [Zubsolv 5.7-1.4 mg Tablet Sl] 1 each SL BID Quetiapine Fumarate [Quetiapine Fumarate ER] 50 mg PO TID #90 tab.er.24h hydrOXYzine PAMOATE [Vistaril -] 50 mg PO Q4H PRN #90 capsule 08/17/17 - Diagnosis (1) Abnormal finding on urinalysis Current Visit: Yes Status: Acute (2) Alcohol dependence with uncomplicated withdrawal Current Visit: Yes Status: Acute (3) Cocaine dependence, uncomplicated Current Visit: Yes Status: Acute (4) Opioid dependence with withdrawal Current Visit: Yes Status: Chronic (5) Sedative, hypnotic or anxiolytic dependence with withdrawal, uncomplicated Current Visit: Yes Status: Chronic - AMA Did Patient Leave Against Medical Advice: No
[2017-08-19 09:13] VITALS: BP 106/59; PULSE 108; TEMP 98.4
[2017-08-19] MEDS: POTASSIUM CHLORIDE TABS 20 MEQ TABLET.ER (FP) PO SCH (09:19)
[2017-08-19] MEDS: PRENATAL VITAMINS W/ FOLIC ACID TABLET (FP) PO SCH (09:19)
[2017-08-19] MEDS: hydrOXYzine PAMOATE 25 MG CAPSULE (FP) PO PRN (09:19)
== END 2017-08-19 11:26 | disposition home or self-care (01) | DRG 773 ==
LOC: EDBD → YASAS 10:53 → Y6N 15:25
PROVIDERS: ADMIT Family Medicine Addiction Medicine; ATTEND Family Medicine Addiction Medicine
PROC: HZ2ZZZZ Detoxification Services for Substance Abuse Treatment (ICD-10-PCS; principal; 2017-08-14)
DX: F11.23 Opioid dependence with withdrawal (principal); F13.230 Sedative, hypnotic or anxiolytic dependence with withdrawal, uncomplicated; F10.230 Alcohol dependence with withdrawal, uncomplicated; F14.20 Cocaine dependence, uncomplicated; F19.24 Other psychoactive substance dependence with psychoactive substance-induced mood disorder; F19.282 Other psychoactive substance dependence with psychoactive substance-induced sleep disorder; G47.00 Insomnia, unspecified; R82.90 Unspecified abnormal findings in urine; Z86.69 Personal history of other diseases of the nervous system and sense organs; Z88.0 Allergy status to penicillin; Z91.018 Allergy to other foods
CPT/HCPCS: 36415; 80053; 81003; 81015; 84132; 85027; 86593; 93005; 93010

== ENCOUNTER 2018-01-09 16:12 | Inpatient (IN) | payer OTHER ==
[2018-01-09 16:38] VITALS: BMI 25.3
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
[2018-01-09] MEDS ORDERED: MENTHOL/PHENOL 1 EACH UD MM PRN (17:47)
[2018-01-09] MEDS ORDERED: guaiFENesin/D-METHORPHAN HB 10 ML UNIT-DOSE CUPS PO PRN (17:47)
[2018-01-09] MEDS ORDERED: MAGNESIUM HYDROX 2400MG/30ML ORAL SUSPENSION 30 ML CUP PO PRN (17:47)
[2018-01-09] MEDS ORDERED: LOPERAMIDE HCL 2 MG CAPSULE PO PRN (17:47)
[2018-01-09] MEDS ORDERED: ACETAMINOPHEN 325 MG TABLET (FP) PO PRN (17:47)
[2018-01-09] MEDS ORDERED: IBUPROFEN 400 MG TABLET (FP) PO PRN (17:47)
[2018-01-09] MEDS ORDERED: P-EPHED 60MG/TRIPROLIDI 2.5MG TABLET PO PRN (17:47)
[2018-01-09] MEDS ORDERED: hydrOXYzine PAMOATE 25 MG CAPSULE (FP) PO PRN (17:47)
[2018-01-09] MEDS ORDERED: MAGNESIUM CITRATE 300 ML BOTTLE PO PRN (17:47)
[2018-01-09] MEDS ORDERED: MAG HYDROX/AL HYDROX/SIMETH 30 ML UNIT-DOSE CUP PO PRN (17:47)
[2018-01-09] MEDS ORDERED: chlordiazePOXIDE HCL 25 MG CAPSULE PO PRN (17:47)
[2018-01-09] MEDS: THIAMINE HCL 100 MG TABLET (FP) PO SCH (21:47)
[2018-01-09] MEDS ORDERED: MELATONIN 5 MG TABLETS PO PRN (22:00)
[2018-01-09] MEDS: chlordiazePOXIDE HCL 25 MG CAPSULE PO SCH (22:48)
[2018-01-10 01:48] LABS: URINE APPEARANCE CLEAR; URINE BILIRUBIN NEGATIVE (<2.0 mg/dL); URINE COLOR LTYELLOW; URINE GLUCOSE (UA) NEGATIVE (NEGATIVE); URINE KETONE NEGATIVE (NEGATIVE); URINE LEUK ESTERASE TRACE (NEGATIVE); URINE NITRITE NEGATIVE (NEGATIVE); URINE PROTEIN NEGATIVE (NEGATIVE); URINE UROBILINOGEN NEGATIVE mg/dL (0.2-1.0)
[2018-01-10 01:57] LABS: EPI CELLS RARE /HPF (FEW); URINE BACTERIA RARE /hpf (NONE SEEN); URINE MUCUS RARE
[2018-01-10] MEDS: chlordiazePOXIDE HCL 25 MG CAPSULE PO SCH ×4 (05:48→22:27)
[2018-01-10] MEDS ORDERED: METHADONE HCL 10 MG TABLET PO ONE (10:08)
[2018-01-10] MEDS ORDERED: hydrOXYzine PAMOATE 25 MG CAPSULE (FP) PO ONE (10:10)
[2018-01-10] MEDS: PRENATAL VITAMINS W/ FOLIC ACID TABLET (FP) PO SCH (10:11)
[2018-01-10] MEDS ORDERED: METHADONE 160 MG, METHADONE 20 MG PO ONE (10:45)
[2018-01-10 10:58] LABS: HEMATOCRIT 39.9 % (32.4-45.2); HEMOGLOBIN 13.3 GM/dL (10.7-15.3); MCH 29.8 pg (25.7-33.7); MCHC 33.4 g/dl (32.0-36.0); MEAN CELL VOLUME 89.2 fl (80-96); PLATELET COUNT 148 K/MM3 (134-434); RBC 4.47 M/mm3 (3.60-5.2); RDW 13.3 % (11.6-15.6)
[2018-01-10 11:01] LABS: ALBUMIN 3.2 g/dl (3.4-5.0); ALK PHOS 85 U/L (45-117); ANION GAP 6 MMOL/L (8-16); BILIRUBIN,TOTAL 0.2 mg/dL (0.2-1); BLOOD UREA NITROGEN 11 mg/dL (7-18); CALCIUM 8.5 mg/dL (8.5-10.1); CHLORIDE 105 mmol/L (98-107); CO2 30 mmol/L (21-32); CREATININE 0.9 mg/dL (0.55-1.3); GLUCOSE,RANDOM 88 mg/dL (74-106); POTASSIUM 3.8 mmol/L (3.5-5.1); SGOT/AST 28 U/L (15-37); SGPT/ALT 26 U/L (13-61); SODIUM 141 mmol/L (136-145); TOT PROT 6.6 g/dl (6.4-8.2)
[2018-01-10] MEDS ORDERED: METHADONE HCL 40 MG DISPERSABLE TABLET ONE (11:05)
[2018-01-10] MEDS ORDERED: METHADONE HCL 10 MG TABLET ONE (11:06)
--- NOTE | 2018-01-10 14:05 | PN ---
[facility] CIWA - CIWA Score Nausea/Vomitin-Mild Nausea/No Vomiting Muscle Tremors: 3 Anxiety: 3 Agitation: 2 Paroxysmal Sweats: 1-Minimal Palms Moist Orientation: 1-Uncertain about Date Tacttile Disturbances: 0-None Auditory Disturbances: 1-Very Mild Visual Disturbances: 0-None Headache: 1-Very Mild CIWA-Ar Total Score: 13 S Progress Note (SOAP) Subjective: sweat tremor anxiety restlessness on methadone 180 mg po daily last dose 01/08/18 appears go have gi distress and body aches Objective: 01/10/18 14:06 Vital Signs Temperature 98.1 F 01/10/18 09:45 Pulse Rate 83 01/10/18 09:45 Respiratory Rate 18 01/10/18 09:45 Blood Pressure 120/92 01/10/18 09:45 O2 Sat by Pulse Oximetry (%) Laboratory Last Values WBC 6.0 K/mm3 (4.0-10.0) 01/10/18 07:30 RBC 4.47 M/mm3 (3.60-5.2) 01/10/18 07:30 Hgb 13.3 GM/dL (10.7-15.3) 01/10/18 07:30 Hct 39.9 % (32.4-45.2) 01/10/18 07:30 MCV 89.2 fl (80-96) 01/10/18 07:30 MCH 29.8 pg (25.7-33.7) 01/10/18 07:30 MCHC 33.4 g/dl (32.0-36.0) 01/10/18 07:30 RDW 13.3 % (11.6-15.6) 01/10/18 07:30 Plt Count 148 K/MM3 (134-434) D 01/10/18 07:30 MPV 12.0 fl (7.5-11.1) H 01/10/18 07:30 Sodium 141 mmol/L (136-145) 01/10/18 07:30 Potassium 3.8 mmol/L (3.5-5.1) 01/10/18 07:30 Chloride 105 mmol/L (98-107) 01/10/18 07:30 Carbon Dioxide 30 mmol/L (21-32) 01/10/18 07:30 Anion Gap 6 MMOL/L (8-16) L 01/10/18 07:30 BUN 11 mg/dL (7-18) 01/10/18 07:30 Creatinine 0.9 mg/dL (0.55-1.3) 01/10/18 07:30 Creat Clearance w eGFR > 60 (>60) 01/10/18 07:30 Random Glucose 88 mg/dL (74-106) 01/10/18 07:30 Calcium 8.5 mg/dL (8.5-10.1) 01/10/18 07:30 Total Bilirubin 0.2 mg/dL (0.2-1) 01/10/18 07:30 AST 28 U/L (15-37) 01/10/18 07:30 ALT 26 U/L (13-61) 01/10/18 07:30 Alkaline Phosphatase 85 U/L (45-117) 01/10/18 07:30 Total Protein 6.6 g/dl (6.4-8.2) 01/10/18 07:30 Albumin 3.2 g/dl (3.4-5.0) L 01/10/18 07:30 Urine Color Ltyellow 01/09/18 23:31 Urine Appearance Clear 01/09/18 23:31 Urine pH 6.0 (5.0-8.0) 01/09/18 23:31 Ur Specific [place] 1.008 (1.010-1.035) L 01/09/18 23:31 Urine Protein Negative (NEGATIVE) 01/09/18 23:31 Urine Glucose (UA) Negative (NEGATIVE) 01/09/18 23:31 Urine Ketones Negative (NEGATIVE) 01/09/18 23:31 Urine Blood Negative (NEGATIVE) 01/09/18 23:31 Urine Nitrite Negative (NEGATIVE) 01/09/18 23:31 Urine Bilirubin Negative (<2.0 mg/dL) 01/09/18 23:31 Urine Urobilinogen Negative mg/dL (0.2-1.0) 01/09/18 23:31 Ur Leukocyte Esterase Trace (NEGATIVE) 01/09/18 23:31 Urine WBC (Auto) 2 /hpf (3-5) 01/09/18 23:31 Urine RBC (Auto) 1 /hpf (0-3) 01/09/18 23:31 Ur Epithelial Cells Rare /HPF (FEW) 01/09/18 23:31 Urine Bacteria Rare /hpf (NONE SEEN) 01/09/18 23:31 Urine Mucus Rare 01/09/18 23:31 RPR Titer Nonreactive (NONREACTIVE) 01/10/18 07:30 lab noted Assessment: 01/10/18 14:07 withdrawal sx Plan: continue detox
--- NOTE | 2018-01-10 19:23 | EKG ---
Test Reason : Blood Pressure : / mmHG Vent. Rate : 070 BPM Atrial Rate : 070 BPM P-R Int : 154 ms QRS Dur : 092 ms QT Int : 456 ms P-R-T Axes : 035 018 026 degrees QTc Int : 492 ms NORMAL SINUS RHYTHM NONSPECIFIC T WAVE ABNORMALITY PROLONGED QT ABNORMAL ECG WHEN COMPARED WITH ECG OF 14-AUG-2017 15:34, T WAVE VARIATION Confirmed by ABDI WAKEFIELD MD ([id number]) on 01/10/2018 7:22:31 PM Referred By: Confirmed By:ABDI WAKEFIELD MD
[2018-01-10] MEDS: THIAMINE HCL 100 MG TABLET (FP) PO SCH (22:26)
[2018-01-11] MEDS ORDERED: METHADONE HCL 10 MG TABLET ONE (05:00)
[2018-01-11] MEDS ORDERED: METHADONE HCL 40 MG DISPERSABLE TABLET ONE (05:00)
[2018-01-11] MEDS: chlordiazePOXIDE HCL 25 MG CAPSULE PO SCH ×3 (05:27→17:43)
[2018-01-11] MEDS: METHADONE 160 MG, METHADONE 20 MG PO SCH (05:28)
[2018-01-11] MEDS ORDERED: METHADONE HCL 10 MG TABLET PO SCH (06:00)
[2018-01-11] MEDS: PRENATAL VITAMINS W/ FOLIC ACID TABLET (FP) PO SCH (10:24)
--- NOTE | 2018-01-11 10:31 | PN ---
S CIWA - CIWA Score Nausea/Vomitin-No Nausea/No Vomiting Muscle Tremors: 4-Moderate,w/Arms Extend Anxiety: 3 Agitation: 3 Paroxysmal Sweats: 3 Orientation: 0-Oriented Tacttile Disturbances: 0-None Auditory Disturbances: 0-None Visual Disturbances: 0-None Headache: 0-None Present CIWA-Ar Total Score: 13 [facility] Progress Note (SOAP) Subjective: agitation anxiety sweats shakes interrupted sleep Objective: 01/11/18 10:30 Vital Signs Temperature 97.5 F L 01/11/18 09:47 Pulse Rate 67 01/11/18 09:47 Respiratory Rate 16 01/11/18 09:47 Blood Pressure 143/84 01/11/18 09:47 O2 Sat by Pulse Oximetry (%) Laboratory Tests 01/09/18 01/10/18 01/10/18 23:31 07:30 07:30 WBC 6.0 RBC 4.47 Hgb 13.3 Hct 39.9 MCV 89.2 MCH 29.8 MCHC 33.4 RDW 13.3 Plt Count 148 D MPV 12.0 H Sodium 141 Potassium 3.8 Chloride 105 Carbon Dioxide 30 Anion Gap 6 L BUN 11 Creatinine 0.9 Creat Clearance w eGFR > 60 Random Glucose 88 Calcium 8.5 Total Bilirubin 0.2 AST 28 ALT 26 Alkaline Phosphatase 85 Total Protein 6.6 Albumin 3.2 L Urine Color Ltyellow Urine Appearance Clear Urine pH 6.0 Ur Specific [place] 1.008 L Urine Protein Negative Urine Glucose (UA) Negative Urine Ketones Negative Urine Blood Negative Urine Nitrite Negative Urine Bilirubin Negative Urine Urobilinogen Negative Ur Leukocyte Esterase Trace Urine WBC (Auto) 2 Urine RBC (Auto) 1 Ur Epithelial Cells Rare Urine Bacteria Rare Urine Mucus Rare RPR Titer 01/10/18 07:30 WBC RBC Hgb Hct MCV MCH MCHC RDW Plt Count MPV Sodium Potassium Chloride Carbon Dioxide Anion Gap BUN Creatinine Creat Clearance w eGFR Random Glucose Calcium Total Bilirubin AST ALT Alkaline Phosphatase Total Protein Albumin Urine Color Urine Appearance Urine pH Ur Specific [place] Urine Protein Urine Glucose (UA) Urine Ketones Urine Blood Urine Nitrite Urine Bilirubin Urine Urobilinogen Ur Leukocyte Esterase Urine WBC (Auto) Urine RBC (Auto) Ur Epithelial Cells Urine Bacteria Urine Mucus RPR Titer Nonreactive aaox3 ambulating no acute distress Assessment: 01/11/18 10:31 withdrawal sx Plan: continue detox increase fluids
[2018-01-11] MEDS ORDERED: hydrOXYzine PAMOATE 25 MG CAPSULE (FP) PO PRN (19:54)
--- NOTE | 2018-01-11 19:58 | PN ---
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
[2018-01-11] MEDS: THIAMINE HCL 100 MG TABLET (FP) PO SCH (22:18)
[2018-01-11] MEDS: QUEtiapine FUMARATE 50 MG TABLET PO SCH (22:19)
[2018-01-11] MEDS: chlordiazePOXIDE 5 MG CAPSULE PO SCH (22:19)
[2018-01-12] MEDS ORDERED: METHADONE HCL 40 MG DISPERSABLE TABLET ONE (04:18)
[2018-01-12] MEDS ORDERED: METHADONE HCL 10 MG TABLET ONE (04:18)
[2018-01-12] MEDS: QUEtiapine FUMARATE 50 MG TABLET PO SCH (06:03)
[2018-01-12] MEDS: METHADONE 160 MG, METHADONE 20 MG PO SCH (06:24)
[2018-01-12] MEDS: chlordiazePOXIDE 5 MG CAPSULE PO SCH ×2 (06:24→10:27)
--- NOTE | 2018-01-12 10:04 | PN ---
[facility] Progress Note (SOAP) Subjective: sweats feeling better i want to speak to psych again Objective: 01/12/18 10:03 Vital Signs Temperature 97.3 F L 01/12/18 09:41 Pulse Rate 67 01/12/18 09:41 Respiratory Rate 18 01/12/18 09:41 Blood Pressure 141/95 01/12/18 09:41 O2 Sat by Pulse Oximetry (%) aaox3 ambulating no acute distress Assessment: 01/12/18 10:03 withdrawal sx Plan: continue detox increase fluids psych ordered revisit as per pt request d/c in am
[2018-01-12] MEDS: PRENATAL VITAMINS W/ FOLIC ACID TABLET (FP) PO SCH (10:27)
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
[2018-01-12 14:24] VITALS: BP 117/73; PULSE 70; TEMP 97.7
--- NOTE | 2018-01-12 14:52 | PN ---
[facility] Progress Note Note: pt has an opportunity to go to our rehab facility. Pt has no s/s of withdrawals. pt states she feels fine and want to go to rehab today. Pt will be d/c to our rehab facility.
--- NOTE | 2018-01-12 14:58 | DS ---
[facility] Detox Discharge Summary Admission Date: 01/09/18 Discharge Date: 01/12/18 - History Present History: Cocaine Dependence - Physical Exam Results Vital Signs: Vital Signs Temperature 97.7 F 01/12/18 14:24 Pulse Rate 70 01/12/18 14:24 Respiratory Rate 18 01/12/18 14:24 Blood Pressure 117/73 01/12/18 14:24 O2 Sat by Pulse Oximetry (%) - Medication Discharge Medications: Ambulatory Orders Buprenorphine HCl/Naloxone HCl [Zubsolv 5.7-1.4 mg Tablet Sl] 1 each SL BID Quetiapine Fumarate [Quetiapine Fumarate ER] 50 mg PO TID #90 tab.er.24h hydrOXYzine PAMOATE [Vistaril -] 50 mg PO Q4H PRN #90 capsule 08/17/17 Methadone [Dolophine -] 180 mg PO DAILY 01/10/18 Quetiapine Fumarate "Xr" [Seroquel XR] 50 mg PO TID #90 tablet 01/11/18 hydrOXYzine PAMOATE [Vistaril -] 50 mg PO Q4H PRN #120 capsule 01/11/18 Gabapentin 300 mg PO BID 01/12/18 Trazodone HCl 50 mg PO HS 01/12/18 - Diagnosis (1) Alcohol dependence with uncomplicated withdrawal Current Visit: Yes Status: Chronic (2) Insomnia secondary to depression with anxiety Current Visit: Yes Status: Acute (3) PTSD (post-traumatic stress disorder) Current Visit: Yes Status: Acute (4) Substance-induced sleep disorder Current Visit: Yes Status: Acute (5) Anxiety disorder Current Visit: Yes Status: Chronic (6) Methadone maintenance therapy patient Current Visit: Yes Status: Chronic (7) Drug-induced mood disorder Current Visit: No Status: Acute (8) Cocaine dependence, uncomplicated Current Visit: Yes Status: Chronic (9) History of insomnia Current Visit: No Status: Chronic (10) Sedative, hypnotic or anxiolytic dependence with withdrawal, uncomplicated Current Visit: Yes Status: Chronic - AMA Did Patient Leave Against Medical Advice: No (referred to [facility])
[2018-01-12] MEDS ORDERED: GABAPENTIN 300 MG CAPSULE (FP) PO SCH (22:00)
[2018-01-12] MEDS ORDERED: QUEtiapine FUMARATE 50 MG TABLET PO SCH (22:00)
[2018-01-12] MEDS ORDERED: chlordiazePOXIDE HCL 10 MG CAPSULE PO SCH (23:00)
== END 2018-01-12 15:57 | disposition other institution (70) | DRG 773 ==
LOC: YASAS 16:12 → Y6N 18:38
PROC: HZ2ZZZZ Detoxification Services for Substance Abuse Treatment (ICD-10-PCS; principal; 2018-01-09)
DX: F10.230 Alcohol dependence with withdrawal, uncomplicated (principal); F11.20 Opioid dependence, uncomplicated; F13.230 Sedative, hypnotic or anxiolytic dependence with withdrawal, uncomplicated; F14.20 Cocaine dependence, uncomplicated; F51.05 Insomnia due to other mental disorder; F43.10 Post-traumatic stress disorder, unspecified; F41.9 Anxiety disorder, unspecified; F19.24 Other psychoactive substance dependence with psychoactive substance-induced mood disorder; F19.282 Other psychoactive substance dependence with psychoactive substance-induced sleep disorder; Z86.69 Personal history of other diseases of the nervous system and sense organs; Z88.0 Allergy status to penicillin; Z91.010 Allergy to peanuts
CPT/HCPCS: 36415; 80053; 81003; 81015; 85027; 86593; 93005; 93010

== ENCOUNTER 2018-01-12 16:03 | Inpatient (IN) | payer OTHER ==
--- NOTE | 2018-01-12 16:44 | HP ---
[facility] Rehab Assess/Revision - Admission History [facility] - Findings Detox History & Physical reviewed: Yes Concur with findings: Yes Comments/Additional Findings: 37 years old female completed alcohol,xanax detox today and on methadone 180 mgs/day Inpatient Rehab Admission - Initial Determination Are CD services needed?: Yes Free of communicable disease: Yes Not in need of hospitalization: Yes - Rehab Admission Criteria Previous failed treatment: Yes Poor recovery environment: Yes Comorbidities: Yes Lacks judgement: No Patient is meeting Inpatient Rehab admission criteria:: Yes (Pt completed detox)
[2018-01-12] MEDS ORDERED: LOPERAMIDE HCL 2 MG CAPSULE PO PRN (16:52)
[2018-01-12] MEDS ORDERED: ACETAMINOPHEN 325 MG TABLET (FP) PO PRN (16:52)
[2018-01-12] MEDS ORDERED: MENTHOL/PHENOL 1 EACH UD MM PRN (16:52)
[2018-01-12] MEDS ORDERED: IBUPROFEN 400 MG TABLET (FP) PO PRN (16:52)
[2018-01-12] MEDS ORDERED: MAG HYDROX/AL HYDROX/SIMETH 30 ML UNIT-DOSE CUP PO PRN (16:52)
[2018-01-12] MEDS ORDERED: MAGNESIUM HYDROX 2400MG/30ML ORAL SUSPENSION 30 ML CUP PO PRN (16:52)
[2018-01-12] MEDS ORDERED: MAGNESIUM CITRATE 300 ML BOTTLE PO PRN (16:52)
[2018-01-12] MEDS ORDERED: guaiFENesin/D-METHORPHAN HB 10 ML UNIT-DOSE CUPS PO PRN (16:52)
[2018-01-12] MEDS ORDERED: P-EPHED 60MG/TRIPROLIDI 2.5MG TABLET PO PRN (16:52)
[2018-01-12] MEDS: GABAPENTIN 300 MG CAPSULE (FP) PO SCH (21:14)
[2018-01-12] MEDS ORDERED: THIAMINE HCL 100 MG TABLET (FP) PO SCH (22:00)
[2018-01-12] MEDS ORDERED: MELATONIN 5 MG TABLETS PO PRN (22:00)
[2018-01-13] MEDS ORDERED: METHADONE HCL 10 MG TABLET PO ONE (08:32)
[2018-01-13] MEDS ORDERED: METHADONE 160 MG, METHADONE 20 MG PO ONE (08:45)
[2018-01-13] MEDS ORDERED: METHADONE HCL 40 MG DISPERSABLE TABLET ONE (08:46)
[2018-01-13] MEDS ORDERED: METHADONE HCL 10 MG TABLET ONE (08:46)
[2018-01-13] MEDS: GABAPENTIN 300 MG CAPSULE (FP) PO SCH (09:29)
[2018-01-13] MEDS ORDERED: PRENATAL VITAMINS W/ FOLIC ACID TABLET (FP) PO SCH (10:00)
[2018-01-13 10:42] VITALS: BP 141/94; PULSE 61; TEMP 97.4
[2018-01-14] MEDS ORDERED: METHADONE HCL 10 MG TABLET PO SCH (06:00)
[2018-01-14] MEDS ORDERED: METHADONE 160 MG, METHADONE 20 MG PO SCH (06:00)
== END 2018-01-13 14:15 | disposition left against medical advice (07) | DRG 770 ==
LOC: YASAS 16:03 → Y3E 16:05
PROVIDERS: ADMIT Psychiatry & Neurology Psychiatry; ATTEND Psychiatry & Neurology Psychiatry
PROC: HZ42ZZZ Group Counseling for Substance Abuse Treatment, Cognitive-Behavioral (ICD-10-PCS; principal; 2018-01-12)
DX: F10.20 Alcohol dependence, uncomplicated (principal); F11.20 Opioid dependence, uncomplicated; F13.20 Sedative, hypnotic or anxiolytic dependence, uncomplicated; F51.05 Insomnia due to other mental disorder; F43.10 Post-traumatic stress disorder, unspecified

== ENCOUNTER 2022-03-04 10:37 | Inpatient (IN) | payer OTHER ==
[2022-03-04 11:00] VITALS: BMI 23.0
[2022-03-04] MEDS ORDERED: chlordiazePOXIDE HCL 25 MG CAPSULE PO PRN (12:20)
[2022-03-04] MEDS ORDERED: MAG HYDROX/AL HYDROX/SIMETH 30 ML UNIT-DOSE CUP PO PRN (12:20)
[2022-03-04] MEDS ORDERED: LOPERAMIDE HCL 2 MG CAPSULE PO PRN (12:20)
[2022-03-04] MEDS ORDERED: ACETAMINOPHEN 325 MG TABLET (FP) PO PRN ×2 (12:20)
[2022-03-04] MEDS ORDERED: DICYCLOMINE HCL 10 MG CAPSULE PO PRN (12:20)
[2022-03-04] MEDS ORDERED: IBUPROFEN 400 MG TABLET (FP) PO PRN (12:20)
[2022-03-04] MEDS ORDERED: POLYETHYLENE GLYCOL (HEALTHYLAX) 3350 17 GM PACKET PO PRN (12:20)
[2022-03-04] MEDS ORDERED: BISMUTH SUBSALICYLATE 262 MG/15 ML BTL PO PRN (12:20)
[2022-03-04] MEDS ORDERED: BENZOCAINE/MENTHOL (CHLORASEPTIC ) LOZENGE MM PRN (12:20)
[2022-03-04] MEDS ORDERED: MAGNESIUM HYDROX 2400MG/30ML ORAL SUSPENSION 30 ML CUP PO PRN (12:20)
[2022-03-04] MEDS ORDERED: NALOXONE HCL (KLOXXADO) 8 MG SPRAY NS PRN (12:20)
[2022-03-04] MEDS ORDERED: ONDANSETRON *ODT* 4 MG TABLET SL PRN (12:20)
[2022-03-04] MEDS ORDERED: IBUPROFEN 600 MG TABLET (FP) PO PRN (12:20)
[2022-03-04] MEDS ORDERED: cloNIDine HCL 0.1 MG TABLET PO ONE (12:23)
[2022-03-04] MEDS ORDERED: cloNIDine HCL 0.1 MG TABLET ONE (12:26)
[2022-03-04] MEDS: METHOCARBAMOL 500 MG TABLET PO PRN (13:12)
[2022-03-04] MEDS: PRENATAL VITAMINS W/ FOLIC ACID TABLET (FP) PO SCH (13:12)
[2022-03-04] MEDS: chlordiazePOXIDE HCL 25 MG CAPSULE PO SCH ×2 (17:50→22:20)
[2022-03-04] MEDS ORDERED: SUVOREXANT 10 MG TABLET PO PRN ×2 (20:00→22:00)
[2022-03-04] MEDS: hydrOXYzine PAMOATE 25 MG CAPSULE (FP) PO PRN (20:09)
[2022-03-04] MEDS ORDERED: MELATONIN 5 MG TABLETS PO SCH (22:00)
[2022-03-04] MEDS: THIAMINE HCL 100 MG TABLET (FP) PO SCH (22:19)
[2022-03-05] MEDS: chlordiazePOXIDE HCL 25 MG CAPSULE PO SCH ×4 (05:35→22:22)
[2022-03-05] MEDS ORDERED: methaDONE HCL 40 MG DISPERSABLE TABLET PO ONE (09:10)
[2022-03-05] MEDS: HYDROCHLOROTHIAZIDE 12.5 MG CAPSULE (FP) PO SCH (10:20)
[2022-03-05] MEDS: LISINOPRIL 10 MG TABLET PO SCH (10:20)
[2022-03-05] MEDS: PRENATAL VITAMINS W/ FOLIC ACID TABLET (FP) PO SCH (10:21)
[2022-03-05 11:48] LABS: HEMATOCRIT 36.8 % (32.4-45.2); HEMOGLOBIN 11.8 GM/dL (10.7-15.3); MCH 28.3 pg (25.7-33.7); MCHC 32.1 g/dl (32.0-36.0); MEAN CELL VOLUME 88.3 fl (80-96); PLATELET COUNT 245 10^3/uL (134-434); RBC 4.17 M/mm3 (3.60-5.2); RDW 13.8 % (11.6-15.6); WHITE BLOOD COUNT 7.6 K/mm3 (4.0-10.0)
[2022-03-05 11:57] LABS: CALCIUM 9.2 mg/dL (8.5-10.1)
[2022-03-05 11:58] LABS: BLOOD UREA NITROGEN 11.4 mg/dL (7-18)
[2022-03-05 12:01] LABS: CREATININE 0.9 mg/dL (0.55-1.3)
[2022-03-05 12:03] LABS: BILIRUBIN,TOTAL 0.2 mg/dL (0.2-1); TOT PROT 6.7 g/dl (6.4-8.2)
[2022-03-05] MEDS: hydrOXYzine PAMOATE 25 MG CAPSULE (FP) PO PRN ×2 (13:40→18:04)
[2022-03-05] MEDS: THIAMINE HCL 100 MG TABLET (FP) PO SCH (22:20)
[2022-03-05] MEDS: SUVOREXANT 10 MG TABLET PO PRN (22:20)
[2022-03-05] MEDS: QUEtiapine FUMARATE 100 MG TABLET (FP) PO SCH (22:20)
[2022-03-06] MEDS: chlordiazePOXIDE HCL 25 MG CAPSULE PO SCH ×4 (05:35→22:15)
[2022-03-06] MEDS: methaDONE HCL 40 MG DISPERSABLE TABLET PO SCH (06:11)
[2022-03-06] MEDS: PRENATAL VITAMINS W/ FOLIC ACID TABLET (FP) PO SCH (10:04)
[2022-03-06] MEDS: LISINOPRIL 10 MG TABLET PO SCH (10:05)
[2022-03-06] MEDS: HYDROCHLOROTHIAZIDE 12.5 MG CAPSULE (FP) PO SCH (10:05)
[2022-03-06] MEDS: hydrOXYzine PAMOATE 25 MG CAPSULE (FP) PO PRN ×2 (11:29→17:08)
[2022-03-06] MEDS: QUEtiapine FUMARATE 100 MG TABLET (FP) PO SCH (22:15)
[2022-03-06] MEDS: THIAMINE HCL 100 MG TABLET (FP) PO SCH (22:15)
[2022-03-06] MEDS: SUVOREXANT 10 MG TABLET PO PRN (22:15)
[2022-03-07] MEDS ORDERED: chlordiazePOXIDE HCL 10 MG CAPSULE PO PRN
[2022-03-07] MEDS: methaDONE HCL 40 MG DISPERSABLE TABLET PO SCH (05:19)
[2022-03-07] MEDS: chlordiazePOXIDE HCL 10 MG CAPSULE PO SCH ×4 (05:20→22:11)
[2022-03-07] MEDS: LISINOPRIL 10 MG TABLET PO SCH (10:23)
[2022-03-07] MEDS: METHOCARBAMOL 500 MG TABLET PO PRN (10:23)
[2022-03-07] MEDS: HYDROCHLOROTHIAZIDE 12.5 MG CAPSULE (FP) PO SCH (10:23)
[2022-03-07] MEDS: PRENATAL VITAMINS W/ FOLIC ACID TABLET (FP) PO SCH (10:23)
[2022-03-07] MEDS: hydrOXYzine PAMOATE 25 MG CAPSULE (FP) PO PRN ×2 (10:25→17:31)
[2022-03-07] MEDS: SUVOREXANT 10 MG TABLET PO PRN (22:10)
[2022-03-07] MEDS: QUEtiapine FUMARATE 100 MG TABLET (FP) PO SCH (22:11)
[2022-03-07] MEDS: THIAMINE HCL 100 MG TABLET (FP) PO SCH (22:11)
[2022-03-08] MEDS: chlordiazePOXIDE HCL 10 MG CAPSULE PO SCH ×2 (05:23→17:36)
[2022-03-08] MEDS: methaDONE HCL 40 MG DISPERSABLE TABLET PO SCH (05:23)
[2022-03-08] MEDS: hydrOXYzine PAMOATE 25 MG CAPSULE (FP) PO PRN ×3 (09:01→22:04)
[2022-03-08] MEDS: PRENATAL VITAMINS W/ FOLIC ACID TABLET (FP) PO SCH (10:33)
[2022-03-08] MEDS: LISINOPRIL 10 MG TABLET PO SCH (10:34)
[2022-03-08] MEDS: HYDROCHLOROTHIAZIDE 12.5 MG CAPSULE (FP) PO SCH (10:34)
[2022-03-08] MEDS: METHOCARBAMOL 500 MG TABLET PO PRN ×2 (10:35→17:36)
[2022-03-08 13:28] VITALS: RESP 16
[2022-03-08] MEDS ORDERED: SUVOREXANT 10 MG TABLET PO PRN (22:00)
[2022-03-08] MEDS: QUEtiapine FUMARATE 100 MG TABLET (FP) PO SCH (22:04)
[2022-03-08] MEDS: THIAMINE HCL 100 MG TABLET (FP) PO SCH (22:04)
[2022-03-09] MEDS ORDERED: chlordiazePOXIDE HCL 10 MG CAPSULE PO ONE (05:00)
[2022-03-09] MEDS: methaDONE HCL 40 MG DISPERSABLE TABLET PO SCH (05:31)
[2022-03-09 06:52] VITALS: BP 102/69; PULSE 58; TEMP 98.2
[2022-03-09] MEDS: PRENATAL VITAMINS W/ FOLIC ACID TABLET (FP) PO SCH (10:29)
[2022-03-09] MEDS: LISINOPRIL 10 MG TABLET PO SCH (10:31)
[2022-03-09] MEDS: HYDROCHLOROTHIAZIDE 12.5 MG CAPSULE (FP) PO SCH (10:31)
== END 2022-03-09 12:55 | disposition other institution (70) | DRG 773 ==
LOC: YASAS 10:37 → Y6N 12:28
PROVIDERS: ADMIT Allergy & Immunology; ATTEND Surgery
PROC: HZ2ZZZZ Detoxification Services for Substance Abuse Treatment (ICD-10-PCS; principal; 2022-03-04)
DX: F13.230 Sedative, hypnotic or anxiolytic dependence with withdrawal, uncomplicated (principal); F11.20 Opioid dependence, uncomplicated; F10.20 Alcohol dependence, uncomplicated; F25.9 Schizoaffective disorder, unspecified; F19.282 Other psychoactive substance dependence with psychoactive substance-induced sleep disorder; F19.280 Other psychoactive substance dependence with psychoactive substance-induced anxiety disorder; F19.24 Other psychoactive substance dependence with psychoactive substance-induced mood disorder; F43.10 Post-traumatic stress disorder, unspecified; F90.9 Attention-deficit hyperactivity disorder, unspecified type; I10 Essential (primary) hypertension; M54.50 Low back pain, unspecified; G89.29 Other chronic pain; Z62.810 Personal history of physical and sexual abuse in childhood; Z91.410 Personal history of adult physical and sexual abuse; Z59.01 Sheltered homelessness; Z88.0 Allergy status to penicillin; Z91.010 Allergy to peanuts
CPT/HCPCS: 36415; 80053; 81025; 82140; 85027; 86780; 93005; 93010; C9803-CS; U0003; U0005

== ENCOUNTER 2022-03-09 13:02 | Inpatient (IN) | payer OTHER ==
[~2022-03-09 13:02] MED LIST: ACETAMINOPHEN 325 MG TABLET (FP) PO PRN; BENZOCAINE/MENTHOL (CHLORASEPTIC ) LOZENGE MM PRN; IBUPROFEN 400 MG TABLET (FP) PO PRN; LOPERAMIDE HCL 2 MG CAPSULE PO PRN; MAG HYDROX/AL HYDROX/SIMETH 30 ML UNIT-DOSE CUP PO PRN; MAGNESIUM HYDROX 2400MG/30ML ORAL SUSPENSION 30 ML CUP PO PRN; NICOTINE 10 MG CARTRIDGE (INHALER) IH PRN; NICOTINE POLACRILEX 4 MG GUM BUC PRN; P-EPHED 60MG/TRIPROLIDI 2.5MG TABLET PO PRN; POLYETHYLENE GLYCOL (HEALTHYLAX) 3350 17 GM PACKET PO PRN; guaiFENesin 200 MG/10 ML 10 ML UNIT-DOSE CUPS PO PRN
[2022-03-09 13:55] VITALS: BMI 23.2
[2022-03-09] MEDS: THIAMINE HCL 100 MG TABLET (FP) PO SCH (21:37)
[2022-03-09] MEDS: QUEtiapine FUMARATE 100 MG TABLET (FP) PO SCH (21:37)
[2022-03-09] MEDS ORDERED: MELATONIN 5 MG TABLETS PO SCH (22:00)
[2022-03-10] MEDS: methaDONE HCL 40 MG DISPERSABLE TABLET PO SCH (06:22)
[2022-03-10] MEDS: PRENATAL VITAMINS W/ FOLIC ACID TABLET (FP) PO SCH (10:01)
[2022-03-10] MEDS: NICOTINE 21 MG/24 HOURS TOPICAL PATCH TD SCH (10:02)
[2022-03-10] MEDS: HYDROCHLOROTHIAZIDE 12.5 MG CAPSULE (FP) PO SCH (10:02)
[2022-03-10] MEDS: LISINOPRIL 10 MG TABLET PO SCH (10:52)
[2022-03-10] MEDS: hydrOXYzine PAMOATE 25 MG CAPSULE (FP) PO PRN ×2 (11:08→19:04)
[2022-03-10] MEDS: THIAMINE HCL 100 MG TABLET (FP) PO SCH (21:41)
[2022-03-10] MEDS: QUEtiapine FUMARATE 100 MG TABLET (FP) PO SCH (21:41)
[2022-03-10] MEDS: SUVOREXANT 10 MG TABLET PO PRN (21:42)
[2022-03-11] MEDS: methaDONE HCL 40 MG DISPERSABLE TABLET PO SCH (06:20)
[2022-03-11] MEDS: HYDROCHLOROTHIAZIDE 12.5 MG CAPSULE (FP) PO SCH (09:44)
[2022-03-11] MEDS: hydrOXYzine PAMOATE 25 MG CAPSULE (FP) PO PRN ×3 (09:45→21:44)
[2022-03-11] MEDS: LISINOPRIL 10 MG TABLET PO SCH (09:45)
[2022-03-11] MEDS: PRENATAL VITAMINS W/ FOLIC ACID TABLET (FP) PO SCH (09:45)
[2022-03-11] MEDS: NICOTINE 21 MG/24 HOURS TOPICAL PATCH TD SCH (09:46)
[2022-03-11] MEDS: THIAMINE HCL 100 MG TABLET (FP) PO SCH (21:44)
[2022-03-11] MEDS: SUVOREXANT 10 MG TABLET PO PRN (21:44)
[2022-03-11] MEDS: QUEtiapine FUMARATE 100 MG TABLET (FP) PO SCH (21:44)
[2022-03-12] MEDS: methaDONE HCL 40 MG DISPERSABLE TABLET PO SCH (06:32)
[2022-03-12] MEDS: PRENATAL VITAMINS W/ FOLIC ACID TABLET (FP) PO SCH (09:54)
[2022-03-12] MEDS: HYDROCHLOROTHIAZIDE 12.5 MG CAPSULE (FP) PO SCH (09:54)
[2022-03-12] MEDS: LISINOPRIL 10 MG TABLET PO SCH (09:54)
[2022-03-12] MEDS: hydrOXYzine PAMOATE 25 MG CAPSULE (FP) PO PRN ×2 (10:02→21:29)
[2022-03-12] MEDS: QUEtiapine FUMARATE 100 MG TABLET (FP) PO SCH (21:28)
[2022-03-12] MEDS: THIAMINE HCL 100 MG TABLET (FP) PO SCH (21:28)
[2022-03-12] MEDS: SUVOREXANT 10 MG TABLET PO PRN (21:30)
[2022-03-13] MEDS: methaDONE HCL 40 MG DISPERSABLE TABLET PO SCH (06:15)
[2022-03-13] MEDS: PRENATAL VITAMINS W/ FOLIC ACID TABLET (FP) PO SCH (09:09)
[2022-03-13] MEDS: HYDROCHLOROTHIAZIDE 12.5 MG CAPSULE (FP) PO SCH (09:12)
[2022-03-13] MEDS: LISINOPRIL 10 MG TABLET PO SCH (09:12)
[2022-03-13] MEDS: hydrOXYzine PAMOATE 25 MG CAPSULE (FP) PO PRN ×2 (09:13→21:30)
[2022-03-13] MEDS: THIAMINE HCL 100 MG TABLET (FP) PO SCH (21:30)
[2022-03-13] MEDS: QUEtiapine FUMARATE 100 MG TABLET (FP) PO SCH (21:30)
[2022-03-13] MEDS: SUVOREXANT 10 MG TABLET PO PRN (21:32)
[2022-03-14] MEDS: methaDONE HCL 40 MG DISPERSABLE TABLET PO SCH (06:25)
[2022-03-14] MEDS: PRENATAL VITAMINS W/ FOLIC ACID TABLET (FP) PO SCH (09:22)
[2022-03-14] MEDS: HYDROCHLOROTHIAZIDE 12.5 MG CAPSULE (FP) PO SCH (09:23)
[2022-03-14] MEDS: LISINOPRIL 10 MG TABLET PO SCH (09:23)
[2022-03-14] MEDS: hydrOXYzine PAMOATE 25 MG CAPSULE (FP) PO PRN ×3 (09:23→21:40)
[2022-03-14] MEDS: QUEtiapine FUMARATE 100 MG TABLET (FP) PO SCH (21:39)
[2022-03-14] MEDS: SUVOREXANT 10 MG TABLET PO PRN (21:39)
[2022-03-14] MEDS: THIAMINE HCL 100 MG TABLET (FP) PO SCH (21:40)
[2022-03-15] MEDS: methaDONE HCL 40 MG DISPERSABLE TABLET PO SCH (06:17)
[2022-03-15] MEDS: PRENATAL VITAMINS W/ FOLIC ACID TABLET (FP) PO SCH (09:24)
[2022-03-15] MEDS: LISINOPRIL 10 MG TABLET PO SCH (09:24)
[2022-03-15] MEDS: HYDROCHLOROTHIAZIDE 12.5 MG CAPSULE (FP) PO SCH (09:24)
[2022-03-15] MEDS: hydrOXYzine PAMOATE 25 MG CAPSULE (FP) PO PRN ×2 (09:25→19:21)
[2022-03-15] MEDS ORDERED: cloNIDine HCL 0.1 MG TABLET PO ONE (21:37)
[2022-03-15] MEDS: THIAMINE HCL 100 MG TABLET (FP) PO SCH (21:51)
[2022-03-15] MEDS: QUEtiapine FUMARATE 100 MG TABLET (FP) PO SCH (21:51)
[2022-03-15] MEDS: SUVOREXANT 10 MG TABLET PO PRN (21:51)
[2022-03-16] MEDS: methaDONE HCL 40 MG DISPERSABLE TABLET PO SCH (06:21)
[2022-03-16] MEDS: hydrOXYzine PAMOATE 25 MG CAPSULE (FP) PO PRN ×2 (09:16→17:54)
[2022-03-16] MEDS: PRENATAL VITAMINS W/ FOLIC ACID TABLET (FP) PO SCH (09:16)
[2022-03-16] MEDS: HYDROCHLOROTHIAZIDE 12.5 MG CAPSULE (FP) PO SCH (09:16)
[2022-03-16] MEDS: LISINOPRIL 10 MG TABLET PO SCH (09:16)
[2022-03-16] MEDS: QUEtiapine FUMARATE 100 MG TABLET (FP) PO SCH (21:35)
[2022-03-16] MEDS: SUVOREXANT 10 MG TABLET PO PRN (21:35)
[2022-03-16] MEDS: THIAMINE HCL 100 MG TABLET (FP) PO SCH (21:35)
[2022-03-17] MEDS: hydrOXYzine PAMOATE 25 MG CAPSULE (FP) PO PRN ×2 (06:23→17:41)
[2022-03-17] MEDS: methaDONE HCL 40 MG DISPERSABLE TABLET PO SCH (06:23)
[2022-03-17] MEDS: HYDROCHLOROTHIAZIDE 12.5 MG CAPSULE (FP) PO SCH (09:13)
[2022-03-17] MEDS: PRENATAL VITAMINS W/ FOLIC ACID TABLET (FP) PO SCH (09:13)
[2022-03-17] MEDS: LISINOPRIL 10 MG TABLET PO SCH (09:14)
[2022-03-17] MEDS: cloNIDine HCL 0.1 MG TABLET PO PRN ×2 (09:15→21:10)
[2022-03-17] MEDS: THIAMINE HCL 100 MG TABLET (FP) PO SCH (21:10)
[2022-03-17] MEDS: SUVOREXANT 10 MG TABLET PO PRN (21:10)
[2022-03-17] MEDS: QUEtiapine FUMARATE 100 MG TABLET (FP) PO SCH (21:10)
[2022-03-18] MEDS: hydrOXYzine PAMOATE 25 MG CAPSULE (FP) PO PRN (02:51)
[2022-03-18] MEDS: methaDONE HCL 40 MG DISPERSABLE TABLET PO SCH (06:09)
[2022-03-18] MEDS: cloNIDine HCL 0.1 MG TABLET PO PRN ×2 (07:29→17:44)
[2022-03-18] MEDS: LISINOPRIL 10 MG TABLET PO SCH (09:06)
[2022-03-18] MEDS: HYDROCHLOROTHIAZIDE 12.5 MG CAPSULE (FP) PO SCH (09:06)
[2022-03-18] MEDS: PRENATAL VITAMINS W/ FOLIC ACID TABLET (FP) PO SCH (09:06)
[2022-03-18] MEDS: hydrOXYzine PAMOATE 50 MG CAPSULE (FP) PO PRN ×2 (14:18→17:44)
[2022-03-18] MEDS: THIAMINE HCL 100 MG TABLET (FP) PO SCH (21:24)
[2022-03-18] MEDS: QUEtiapine FUMARATE 100 MG TABLET (FP) PO SCH (21:24)
[2022-03-18 22:19] VITALS: RESP 18
[2022-03-19] MEDS: methaDONE HCL 40 MG DISPERSABLE TABLET PO SCH (06:07)
[2022-03-19] MEDS: hydrOXYzine PAMOATE 50 MG CAPSULE (FP) PO PRN ×4 (06:08→21:42)
[2022-03-19] MEDS: HYDROCHLOROTHIAZIDE 12.5 MG CAPSULE (FP) PO SCH (09:55)
[2022-03-19] MEDS: LISINOPRIL 10 MG TABLET PO SCH (09:55)
[2022-03-19] MEDS: PRENATAL VITAMINS W/ FOLIC ACID TABLET (FP) PO SCH (09:55)
[2022-03-19] MEDS: cloNIDine HCL 0.1 MG TABLET PO PRN ×2 (09:55→21:41)
[2022-03-19] MEDS: SUVOREXANT 10 MG TABLET PO PRN (21:41)
[2022-03-19] MEDS: THIAMINE HCL 100 MG TABLET (FP) PO SCH (21:42)
[2022-03-19] MEDS: QUEtiapine FUMARATE 100 MG TABLET (FP) PO SCH (21:42)
[2022-03-20] MEDS: methaDONE HCL 40 MG DISPERSABLE TABLET PO SCH (06:03)
[2022-03-20] MEDS ORDERED: hydrOXYzine PAMOATE 25 MG CAPSULE (FP) PO ONE (07:42)
[2022-03-20] MEDS: hydrOXYzine PAMOATE 50 MG CAPSULE (FP) PO PRN (07:45)
[2022-03-20] MEDS: PRENATAL VITAMINS W/ FOLIC ACID TABLET (FP) PO SCH (10:01)
[2022-03-20] MEDS: LISINOPRIL 10 MG TABLET PO SCH (10:02)
[2022-03-20] MEDS: HYDROCHLOROTHIAZIDE 12.5 MG CAPSULE (FP) PO SCH (10:02)
[2022-03-20] MEDS: cloNIDine HCL 0.1 MG TABLET PO PRN ×2 (10:04→22:02)
[2022-03-20] MEDS ORDERED: SUVOREXANT 10 MG TABLET PO PRN (22:00)
[2022-03-20] MEDS: THIAMINE HCL 100 MG TABLET (FP) PO SCH (22:02)
[2022-03-20] MEDS: QUEtiapine FUMARATE 100 MG TABLET (FP) PO SCH (22:02)
[2022-03-21] MEDS: cloNIDine HCL 0.1 MG TABLET PO PRN (06:34)
[2022-03-21] MEDS: methaDONE HCL 40 MG DISPERSABLE TABLET PO SCH (06:34)
[2022-03-21] MEDS: hydrOXYzine PAMOATE 50 MG CAPSULE (FP) PO PRN ×2 (06:34→15:57)
[2022-03-21 08:04] VITALS: TEMP 97.6
[2022-03-21] MEDS: PRENATAL VITAMINS W/ FOLIC ACID TABLET (FP) PO SCH (09:00)
[2022-03-21] MEDS: LISINOPRIL 10 MG TABLET PO SCH (09:00)
[2022-03-21] MEDS: HYDROCHLOROTHIAZIDE 12.5 MG CAPSULE (FP) PO SCH (09:00)
[2022-03-21] MEDS ORDERED: QUEtiapine FUMARATE 100 MG TABLET (FP) PO SCH (12:15)
[2022-03-21] MEDS ORDERED: cloNIDine HCL 0.1 MG TABLET PO PRN (12:36)
[2022-03-21 13:08] VITALS: BP 128/86; PULSE 76
== END 2022-03-21 19:02 | disposition home or self-care (01) | DRG 772 ==
LOC: YASAS 13:02 → Y5N 13:04
PROVIDERS: ADMIT Allergy & Immunology; ATTEND Psychiatry & Neurology Pain Medicine
PROC: HZ42ZZZ Group Counseling for Substance Abuse Treatment, Cognitive-Behavioral (ICD-10-PCS; principal; 2022-03-09)
DX: F13.20 Sedative, hypnotic or anxiolytic dependence, uncomplicated (principal); F11.20 Opioid dependence, uncomplicated; F31.9 Bipolar disorder, unspecified; F25.0 Schizoaffective disorder, bipolar type; F90.9 Attention-deficit hyperactivity disorder, unspecified type; F41.0 Panic disorder [episodic paroxysmal anxiety]; I10 Essential (primary) hypertension; Z88.0 Allergy status to penicillin; Z91.010 Allergy to peanuts; Z91.018 Allergy to other foods
CPT/HCPCS: 36415; 86803; C9803-CS; U0003; U0005

== ENCOUNTER 2024-08-14 16:21 | Inpatient (IN) | payer OTHER ==
[2024-08-14 16:39] VITALS: BMI 22.1
[2024-08-14] MEDS ORDERED: ONDANSETRON *ODT* 4 MG TABLET SL PRN (17:13)
[2024-08-14] MEDS ORDERED: BENZONATATE 200 MG CAPSULE PO PRN (17:13)
[2024-08-14] MEDS ORDERED: BENZOCAINE/MENTHOL (CHLORASEPTIC ) LOZENGE MM PRN (17:13)
[2024-08-14] MEDS ORDERED: guaiFENesin 600 MG TABLET.ER (FP) PO PRN (17:13)
[2024-08-14] MEDS ORDERED: ACETAMINOPHEN 325 MG TABLET (FP) PO PRN (17:13)
[2024-08-14] MEDS ORDERED: NALOXONE (NARCAN) HCL 4 MG/0.1 ML SPRAY NS PRN (17:13)
[2024-08-14] MEDS ORDERED: DICYCLOMINE HCL 10 MG CAPSULE PO PRN (17:13)
[2024-08-14] MEDS ORDERED: POLYETHYLENE GLYCOL (HEALTHYLAX) 3350 17 GM PACKET PO PRN (17:13)
[2024-08-14] MEDS ORDERED: MAG HYDROX/AL HYDROX/SIMETH 30 ML UNIT-DOSE CUP PO PRN (17:13)
[2024-08-14] MEDS ORDERED: LOPERAMIDE HCL 2 MG CAPSULE PO PRN (17:13)
[2024-08-14] MEDS ORDERED: MAGNESIUM HYDROX 2400MG/30ML ORAL SUSPENSION 30 ML CUP PO PRN (17:13)
[2024-08-14] MEDS ORDERED: methaDONE HCL 10 MG TABLET (FOR DETOX USE ONLY) ONE (17:51)
[2024-08-14] MEDS ORDERED: cloNIDine HCL 0.1 MG TABLET ONE (17:51)
[2024-08-14] MEDS: cloNIDine HCL 0.1 MG TABLET PO ONE (17:54)
[2024-08-14] MEDS: methaDONE HCL 10 MG TABLET PO ONE (17:56)
[2024-08-14] MEDS: MELATONIN 5 MG TABLETS PO SCH (22:29)
[2024-08-14] MEDS: hydrOXYzine PAMOATE 25 MG CAPSULE (FP) PO PRN (22:29)
[2024-08-14] MEDS: diazePAM 5 MG TABLET PO SCH (22:29)
[2024-08-14] MEDS: THIAMINE 100 MG TABLET PO SCH (22:30)
[2024-08-15] MEDS: cloNIDine HCL 0.1 MG TABLET PO PRN (05:51)
[2024-08-15] MEDS: LISINOPRIL 10 MG TABLET PO SCH (09:07)
[2024-08-15] MEDS: HYDROCHLOROTHIAZIDE 12.5 MG CAPSULE (FP) PO SCH (09:07)
[2024-08-15] MEDS: METHOCARBAMOL 500 MG TABLET PO PRN (09:07)
[2024-08-15] MEDS: PRENATAL VITAMINS W/ FOLIC ACID TABLET (FP) PO SCH (09:07)
[2024-08-15] MEDS: methaDONE HCL 40 MG DISPERSABLE TABLET PO SCH (09:08)
[2024-08-15 12:47] LABS: HEMATOCRIT 37.9 % (34.1-44.9); HEMOGLOBIN 11.3 g/dL (11.2-15.7); MCHC 29.8 g/dl (32.2-35.5); MEAN CELL VOLUME 87.1 fl (79.4-94.8); MEAN PLT VOLUME 14.2 fl (9.4-12.3); PLATELET COUNT 215 x10^3/uL (182-369); RDW 16.6 % (12.2-17.1)
[2024-08-15 13:23] LABS: ALBUMIN 3.9 g/dl (3.4-5.0); ANION GAP 9 mmol/L (4-13); CHLORIDE 104 mmol/L (98-107); CO2 29 mmol/L (21-32); GLUCOSE,RANDOM 87 mg/dL (74-106); POTASSIUM 3.9 mmol/L (3.5-5.1); SGOT/AST 21 U/L (15-37); SGPT/ALT 24 U/L (13-61); SODIUM 142 mmol/L (136-145)
[2024-08-15 13:25] LABS: ALK PHOS 82 U/L (45-117); BILIRUBIN,TOTAL 0.3 mg/dL (0.2-1); TOT PROT 8.2 g/dl (6.4-8.2)
[2024-08-15] MEDS: QUEtiapine FUMARATE 100 MG TABLET (FP) PO SCH (22:27)
[2024-08-16] MEDS: diazePAM 5 MG TABLET PO SCH (05:40)
[2024-08-16] MEDS ORDERED: methaDONE HCL 40 MG DISPERSABLE TABLET PO SCH (06:00)
[2024-08-16] MEDS: GABAPENTIN 100 MG CAPSULE PO SCH (13:25)
[2024-08-16] MEDS: diazePAM 5 MG TABLET PO PRN (19:27)
[2024-08-16 21:25] LABS: EPI CELLS >36 /uL (0-25.1); HYALINE CASTS 1 /uL (0-3.1); URINE APPEARANCE CLOUDY; URINE BACTERIA 2065 /uL (0-1359); URINE BILIRUBIN NEGATIVE (NEGATIVE); URINE COLOR YELLOW; URINE GLUCOSE (UA) NEGATIVE (NEGATIVE); URINE KETONE NEGATIVE (NEGATIVE); URINE LEUK ESTERASE TRACE (NEGATIVE); URINE NITRITE NEGATIVE (NEGATIVE); URINE PROTEIN NEGATIVE (NEGATIVE); URINE UROBILINOGEN 0.2 mg/dL (0.2-1.0); URINE WBC 71 /uL (0-25.8)
[2024-08-16 21:30] LABS: COCAINE, UR NEGATIVE (NEGATIVE); OPIATES, URI NEGATIVE (NEGATIVE); URINE AMPHETAMINES NEGATIVE (NEGATIVE); URINE BARBITURATES NEGATIVE (NEGATIVE)
[2024-08-16 21:31] LABS: METHADONE, UR POSITIVE (NEGATIVE); PHENCYCLIDINE,URINE NEGATIVE (NEGATIVE); URINE BENZODIAZEPINES POSITIVE (NEGATIVE)
[2024-08-16 21:43] LABS: URINE RBC 21.2 /uL (0-23.9)
[2024-08-17] MEDS: methaDONE HCL 40 MG DISPERSABLE TABLET PO SCH (05:43)
[2024-08-17] MEDS: diazePAM 5 MG TABLET PO SCH (05:43)
[2024-08-17 10:58] LABS: HEMATOCRIT 31.1 % (34.1-44.9); HEMOGLOBIN 9.3 g/dL (11.2-15.7); MCHC 29.9 g/dl (32.2-35.5); MEAN CELL VOLUME 88.1 fl (79.4-94.8); PLATELET COUNT 158 x10^3/uL (182-369); RDW 16.6 % (12.2-17.1)
[2024-08-17 11:03] LABS: POTASSIUM 3.9 mmol/L (3.5-5.1)
[2024-08-17 11:22] LABS: BLOOD UREA NITROGEN 17.5 mg/dL (7-18); CALCIUM 9.3 mg/dL (8.5-10.1)
[2024-08-17 11:23] LABS: ALBUMIN 3.2 g/dl (3.4-5.0)
[2024-08-17 11:26] LABS: CREATININE 0.9 mg/dL (0.55-1.3)
[2024-08-17 11:27] LABS: BILIRUBIN,TOTAL 0.2 mg/dL (0.2-1)
[2024-08-17] MEDS: amLODIPine BESYLATE 5 MG TABLET (FP) PO SCH (11:51)
[2024-08-17 12:02] LABS: TOT PROT 6.8 g/dl (6.4-8.2)
[2024-08-17] MEDS: LACTULOSE 20 GM/30 ML UDC (FOR ORAL USE ONLY) PO ONE (13:04)
[2024-08-17] MEDS: cloNIDine HCL 0.1 MG TABLET PO ONE (19:20)
[2024-08-17] MEDS: propRANOLol HCL 10 MG TABLET PO ONE (21:08)
[2024-08-17] MEDS: PRAZOSIN HCL 1 MG CAPSULE PO SCH (22:18)
[2024-08-18] MEDS: diazePAM 5 MG TABLET PO ONE (05:51)
[2024-08-19] MEDS: IBUPROFEN 600 MG TABLET (FP) PO PRN (20:43)
[2024-08-20] MEDS: IBUPROFEN 400 MG TABLET (FP) PO PRN (18:58)
[2024-08-21] MEDS: BISMUTH SUBSALICYLATE 524 MG/30 ML PO PRN (18:50)
[2024-08-22 12:06] VITALS: BP 131/75; PULSE 82; RESP 16; TEMP 97.3
== END 2024-08-22 12:06 | disposition home or self-care (01) | DRG 773 ==
LOC: YASAS 16:21 → Y6N 18:59
PROVIDERS: ADMIT Family Medicine; ATTEND Family Medicine
PROC: HZ2ZZZZ Detoxification Services for Substance Abuse Treatment (ICD-10-PCS; principal; 2024-08-11)
DX: F10.230 Alcohol dependence with withdrawal, uncomplicated (principal); F13.230 Sedative, hypnotic or anxiolytic dependence with withdrawal, uncomplicated; F11.20 Opioid dependence, uncomplicated; F14.20 Cocaine dependence, uncomplicated; F15.10 Other stimulant abuse, uncomplicated; F31.9 Bipolar disorder, unspecified; F19.282 Other psychoactive substance dependence with psychoactive substance-induced sleep disorder; F19.280 Other psychoactive substance dependence with psychoactive substance-induced anxiety disorder; F19.24 Other psychoactive substance dependence with psychoactive substance-induced mood disorder; I10 Essential (primary) hypertension; Z62.810 Personal history of physical and sexual abuse in childhood; Z91.410 Personal history of adult physical and sexual abuse; Z63.0 Problems in relationship with spouse or partner; Z63.8 Other specified problems related to primary support group
CPT/HCPCS: 36415; 80053; 80305; 80307; 81003; 81025; 82140; 82607; 84439; 84443; 84481; 85027; 86376; 86780; 86800; 87811; 93005; 93010